=== PATIENT | male | born 1945 | race Caucasian/White ===

== ENCOUNTER 2019-02-08 10:18 | Inpatient (IN) | payer MEDICARE, OTHER ==
[~2019-02-08] VITALS: Ht 177.8 cm; Wt 94.4 kg
[~2019-02-08 10:18] MED LIST: AMIO200T4 PO; AMYL1CAP58 PO; CALC-17 PO; CARV12.52 PO; DEXL60CA3 PO; DIAZ5SOL2 PO; DOCU-270 PO; FURO80TA85 PO; HYDR-3976 PO; LISI2.5T2 PO; MEXI150C16 PO; OMEG-72 PO; POTA20TA83 PO; QUET50TA15 PO; RISE35TA8 PO; ROSU10TA2 PO; SPIR25TA6 PO; TRAM50TA2 PO; VITA1TAB56 PO; WARF7.5T23 PO
--- NOTE | 2019-02-08 10:58 | NUR ---
Cellulitis/swelling LE "was sent her by my MD to check legs. Swollen again and R one looks red". Patient a/ox4, breathing even and unlabored, no sob noted, denies pain at this time. Attached to the ekg monitor tech.
[2019-02-08] MEDS ORDERED: CEFAZOLIN 1 GM in IV D5W 50 ML IV ONE (11:30)
[2019-02-08 11:37] LABS: BASOPHILS # (AUTO) 0.1 /CMM (0.0-0.2); BASOPHILS % (AUTO) 1.3 % (0.0-2.0); EOSINOPHILS % (AUTO) 2.2 % (0.0-6.0); HEMATOCRIT 41 % (39-51); HEMOGLOBIN 13.4 g/dL (13.5-17.5); LYMPHOCYTES # (AUTO) 1.1 /CMM (0.8-4.8); LYMPHOCYTES % (AUTO) 15.5 % (20.0-44.0); MEAN CORPUSCULAR HGB CONC 33 g/dl (31.0-36.0); MEAN CORPUSCULAR VOLUME 91 fL (80-96); MONOCYTES # (AUTO) 0.7 /CMM (0.1-1.30); MONOCYTES % (AUTO) 9.5 % (2.0-12.0); NEUTROPHILS % (AUTO) 71.5 % (43.0-81.0); PLATELET COUNT (AUTO) 135 /CMM (150-450); RED BLOOD CELL COUNT(AUTO) 4.45 MIL/uL (4.5-6.0)
[2019-02-08 11:47] LABS: CALCIUM, SERUM 9.3 mg/dL (8.5-10.1); CARBON DIOXIDE 28 mmol/L (21-32); CHLORIDE 103 mmol/L (98-107); CREATININE 1.5 mg/dL (0.6-1.3); GLUCOSE 120 mg/dL (74-106); POTASSIUM 4.1 mmol/L (3.5-5.1); SODIUM SERUM 140 mmol/L (136-145); UREA NITROGEN, BLOOD 38 mg/dL (7-18)
[2019-02-08 11:59] LABS: ALANINE AMINOTRANSFERASE 25 U/L (12-78); ALKALINE PHOSPHATASE 47 U/L (46-116); ASPARTATE AMINOTRANSFERASE 18 U/L (15-37); B-TYPE NATRIURETIC PEPTIDE 2330 PG/ML (0-125); BILIRUBIN,DIRECT 0.3 mg/dL (0.0-0.2); BILIRUBIN,TOTAL 0.7 mg/dL (0.2-1.0); TOTAL PROTEIN, SERUM 6.8 g/dL (6.4-8.2)
--- NOTE | 2019-02-08 12:40 | NUR ---
called landen [phone] not there. cell phone [phone] called left
[2019-02-08] MEDS ORDERED: QUET50TA79 PO (12:53)
[2019-02-08] MEDS ORDERED: DOCU250C14 PO (12:53)
[2019-02-08] MEDS ORDERED: MAGN400T26 PO (12:54)
[2019-02-08] MEDS ORDERED: CALC-7 PO (12:54)
[2019-02-08] MEDS ORDERED: ZOLP10TA2 PO (12:54)
[2019-02-08] MEDS ORDERED: ERGO500014 PO (12:54)
[2019-02-08] MEDS ORDERED: FOLI0.8T PO (12:54)
[2019-02-08] MEDS ORDERED: LORA-259 PO (12:54)
[2019-02-08] MEDS ORDERED: FUROSEMIDE 40 MG/4 ML VIAL ONE (12:59)
[2019-02-08] MEDS ORDERED: FUROSEMIDE 40 MG/4 ML VIAL IV ONE (13:00)
--- NOTE | 2019-02-08 13:25 | NUR ---
caroline schuster [phone]
--- NOTE | 2019-02-08 13:36 | NUR ---
report given to nancy hayes.
--- NOTE | 2019-02-08 13:59 | NUR ---
patient transferred to room 326-2, in stable condition. No distress noted.
--- NOTE | 2019-02-08 14:06 | NUR ---
MS RN NOTES RECEIVED PATIENT IN STABLE CONDITION FROM ER.
[2019-02-08] MEDS ORDERED: DEXTROSE 50%-WATER 50 ML DISP.SYRIN IV PRN (15:00)
[2019-02-08 16:00] VITALS: BP 122/67
[2019-02-08] MEDS ORDERED: BUMETANIDE INJ 4 MG in IV NS 0.9% 24 ML IV ONE (16:00)
[2019-02-08 16:19] LABS: MAGNESIUM 2.2 mg/dL (1.8-2.4)
[2019-02-08 16:42] LABS: THYROID STIMULATING HORMONE 1.569 uIU/mL (0.358-3.74)
[2019-02-08] MEDS: IPRATROPIUM NEB FS 0.5 MG/2.5 ML AMPUL.NEB NEB SCH ×2 (17:09→23:40)
[2019-02-08] MEDS: ALBUTEROL FS 2.5 MG/0.5 ML VIAL.NEB NEB SCH ×2 (17:09→23:40)
--- NOTE | 2019-02-08 17:10 | NUR ---
RT BREATHING TX GIVEN LATE. RT UNAWARE OF SCHEDULED TX'S. NO SOB NOTED AT THIS TIME. Addendum: 02/08/19 at 1711 by ROCIO ALVA RT Amended: Links added.
[2019-02-08] MEDS: BLOOD SUGAR DIAGNOSTIC 1 EACH STRIP IN SCH ×2 (17:20→22:03)
[2019-02-08] MEDS: LISINOPRIL (5MG) 5 MG TABLET PO SCH (18:36)
--- NOTE | 2019-02-08 19:10 | NUR ---
MS RN NOTES PATIENT IS AWAKE, ALERT AND ORIENTED X 4. PATIENT DENIES PAIN, NO SIGNS OF ACUTE DISTRESS. WITH EVEN AND UNLABORED RESPIRATIONS. IV L AC 18G IS CLEAN, DRY AND INTACT. SHOWS NO SIGNS OF REDNESS, NO INFILTRATION. PATIENTS NEEDS WERE ATTENDED TO. SAFETY PRECAUTIONS IN PLACE. BED KEPT IN LOWEST POSITION, LOCKED, AND CALL LIGHT KEPT WITHIN REACH. WILL ENDORSE TO CYBER ANALYST NURSE.
--- NOTE | 2019-02-08 19:37 | NUR ---
TELE/RN OPENING NOTES RECEIVED PATIENT IN BED, AWAKE, ALERT X3, ABLE TO VERBALIZE NEEDS, OBSERVE SITTING IN BED OF CHAIR WITH [employer] ARCHITECT, USING URINAL, ABLE TO EMPTY URINE, RESPIRATIONS EVEN AND UNLABORED, SKIN WARM TO TOUCH, BED LOCKED, CALL LIGHTS WITHIN REACH. MONITOIRNG FOR FLUID RESTRICTIONS, ON TELE VPACING, MONITOIRING FOR HYPO/HYPERGLYCEMIA, WILL ,ONITOR. RECEIVED ENDORSEMENT FROM AM RN FOR BRUNO,
[2019-02-08 19:56] VITALS: BP 118/63
[2019-02-08 20:00] VITALS: BP 118/63
[2019-02-08] MEDS: ZOLPIDEM TARTRATE 10 MG TABLET PO SCH (22:01)
[2019-02-08] MEDS: QUETIAPINE FUMARATE 25 MG TABLET PO SCH (22:02)
[2019-02-09] VITALS (7 sets, daily range): BP systolic 107–133; BP diastolic 56–76
[2019-02-09] MEDS: BLOOD SUGAR DIAGNOSTIC 1 EACH STRIP IN SCH ×4 (06:19→22:30)
--- NOTE | 2019-02-09 06:45 | NUR ---
TELE/RN NOTES PATIENT ABLE TO SLEEP DURING THE NIGHT, ALERT, ORIENTED X3,ABLE TO VERBALIZE NEEDS, BLOOD SUGAR WITHIN NORMAL RANGE, DENIES PAIN, PATIENT TEST DONE PER ORDER BY DR WILKERSON,. FLUID RESTRICTION, BED LOCKED, CALL LIGHTS WITHIN REACH. WILL MONITOR.
--- NOTE | 2019-02-09 07:47 | NUR ---
TELE/RN Opening note Patient received resting in bed, A/O x4, showing no signs of acute distress or SOB on RA. Patient has ICD, tele monitor showing v-pacing at 62. IV line on the LAC #20 s/l is clean and patent. Patient on fluid restrictions 1200ml/day and on daily weights. Bed is in lowest position, side rails x2 in upright position, call light is within reach and patient is aware of how to call for assistance when needed. Will continue with plan of care.
[2019-02-09 08:49] LABS: ALANINE AMINOTRANSFERASE 22 U/L (12-78); ALBUMIN 3.4 g/dL (3.4-5.0); ALKALINE PHOSPHATASE 40 U/L (46-116); ASPARTATE AMINOTRANSFERASE 16 U/L (15-37); BILIRUBIN,TOTAL 0.8 mg/dL (0.2-1.0); CALCIUM, SERUM 8.2 mg/dL (8.5-10.1); CARBON DIOXIDE 31 mmol/L (21-32); CHLORIDE 105 mmol/L (98-107); CREATININE 1.4 mg/dL (0.6-1.3); GLUCOSE 113 mg/dL (74-106); POTASSIUM 3.9 mmol/L (3.5-5.1); SODIUM SERUM 139 mmol/L (136-145); TOTAL PROTEIN, SERUM 5.9 g/dL (6.4-8.2); UREA NITROGEN, BLOOD 35 mg/dL (7-18)
[2019-02-09] MEDS ORDERED: BUMETANIDE INJ 2 MG in IV NS 0.9% 32 ML IV PRN (09:00)
[2019-02-09] MEDS ORDERED: OMEGA ACID ETHYL ESTERS PO SCH (09:00)
[2019-02-09] MEDS ORDERED: SPIRONOLACTONE 25 MG TABLET PO SCH (09:00)
[2019-02-09] MEDS: IPRATROPIUM NEB FS 0.5 MG/2.5 ML AMPUL.NEB NEB SCH ×3 (09:04→23:30)
[2019-02-09] MEDS: ALBUTEROL FS 2.5 MG/0.5 ML VIAL.NEB NEB SCH ×3 (09:05→23:30)
[2019-02-09] MEDS: DOCUSATE SODIUM 250 MG CAPSULE PO SCH ×2 (09:18→17:57)
[2019-02-09] MEDS: SPIRONOLACTONE 25 MG TABLET PO SCH ×2 (09:19→17:50)
[2019-02-09] MEDS: CARVEDILOL 12.5 MG TABLET PO SCH ×2 (09:19→17:50)
[2019-02-09] MEDS: FOLIC ACID 1 MG TABLET PO SCH (09:20)
[2019-02-09] MEDS: LISINOPRIL (5MG) 5 MG TABLET PO SCH (09:20)
[2019-02-09] MEDS: MAGNESIUM OXIDE 400 MG TABLET PO SCH (09:20)
[2019-02-09] MEDS: LORAZEPAM 1 MG TABLET PO SCH ×2 (09:20→17:50)
[2019-02-09] MEDS: ATORVASTATIN 10 MG TABLET PO SCH (09:29)
[2019-02-09] MEDS: AMIODARONE HCL 200 MG TABLET PO SCH (09:29)
--- NOTE | 2019-02-09 10:04 | NUR ---
TELE/RN consent sent for disclosure of health info Per Dr. Posey, request for authorization for use and disclosure of health information was signed by the patient, and faxed to [facility]. Fax completed.
[2019-02-09] MEDS: METOLAZONE 2.5 MG TABLET PO SCH (10:52)
[2019-02-09] MEDS: BUMETANIDE INJ 2 MG in IV NS 0.9% 32 ML IV SCH ×2 (10:52→22:33)
--- NOTE | 2019-02-09 11:44 | NUR ---
received repot from [facility]. notified
[2019-02-09] MEDS: WARFARIN SODIUM 2 MG TABLET PO SCH (17:54)
[2019-02-09] MEDS ORDERED: MEXI150C16 PO (18:29)
--- NOTE | 2019-02-09 18:52 | NUR ---
MS/RN Closing note Patient is resting in bed, A/O x4, showing no signs of acute distress or SOB, saturating >95% on RA. Tele monitor v-pacing at 60, ICD noted on upper right chest. Strict I&O and daily weights enforced. All patient needs met, all due meds given. Bed is in lowest position, side rails x2 in upright position, call light is within reach and patient is aware of how to call for assistance when needed. Will endorse to police shift commander.
--- NOTE | 2019-02-09 19:50 | NUR ---
RN OPENING NOTES RECEIVED REPORT FROM [facility] ARUN ARCHER. FOUND Pt AWAKE, SITTING ON EDGE OF BED, WITH BEDSIDE TABLE AT SIDE. FRIEND VISITING AT BEDSIDE. NO S/S OF ACUTE DISTRESS OR SOB NOTED. Pt DENIED HAVING ANY PAIN OR DISCOMFORT AT THIS TIME. Pt IS A/OX4, VERBAL & ABLE TO MAKE NEEDS KNOWN. ON TELE WITH READING OF V-PACING 60s; HAS ICD ON RCW. IV ACCESS ON LAC #20G, SL. SAFETY MEASURES IN PLACE. BED LOW, LOCKED, HOB ELEVATED, SIDE RAILS UP, CALL LIGHT AND BEDSIDE TABLE WITHIN REACH. BED ALARM ON. WILL CONTINUE TO MONITOR Pt's CONDITION AND SAFETY THROUGHOUT THE NIGHT.
[2019-02-09] MEDS: QUETIAPINE FUMARATE 25 MG TABLET PO SCH (22:33)
[2019-02-09] MEDS: ZOLPIDEM TARTRATE 10 MG TABLET PO SCH (22:33)
[2019-02-10] VITALS: BP 104/75
[2019-02-10 04:00] VITALS: BP 103/56
[2019-02-10] MEDS: BLOOD SUGAR DIAGNOSTIC 1 EACH STRIP IN SCH ×4 (07:04→21:54)
--- NOTE | 2019-02-10 07:04 | NUR ---
RN NOTES AC ACCUCHECK BG 116. NO INSULIN COVERAGE NEEDED AT THIS TIME.
--- NOTE | 2019-02-10 07:07 | NUR ---
RN CLOSING NOTES NO SIGNIFICANT CHANGES IN Pt's CONDITION. Pt REMAINS STABLE PER BASELINE. NO S/S OF ACUTE DISTRESS OR SOB NOTED DURING THE NIGHT. ALL NEEDS MET AND ATTENDED TO. SAFETY MEASURES IN PLACE. BED LOW, LOCKED, HOB ELEVATED, SIDE RAILS UP, CALL LIGHT AND BEDSIDE TABLE WITHIN REACH. WILL ENDORSE TO DAYSHIFT RN FOR Pt's BRUNO.
[2019-02-10] MEDS: ALBUTEROL FS 2.5 MG/0.5 ML VIAL.NEB NEB SCH ×3 (07:35→23:20)
[2019-02-10] MEDS: IPRATROPIUM NEB FS 0.5 MG/2.5 ML AMPUL.NEB NEB SCH ×3 (07:35→23:20)
[2019-02-10 08:00] VITALS: BP 112/57
--- NOTE | 2019-02-10 08:00 | NUR ---
FIELD STAFF AM NOTES RECEIVED Pt AWAKE, SITTING ON EDGE OF BED. DENIES DISCOMFORT, ACUTE DISTRESS OR SOB NOTED.Pt IS A/OX4, VERBAL & ABLE TO MAKE NEEDS KNOWN. ON TELE WITH READING OF V-PACING 60s; HAS ICD ON RCW. IV ACCESS ON LAC #20G, SL. SAFETY MEASURES IN PLACE. BED LOW, LOCKED, HOB ELEVATED, SIDE RAILS UP, CALL LIGHT AND BEDSIDE TABLE WITHIN REACH. BED ALARM ON. WILL CONTINUE TO MONITOR Pt's CONDITION AND SAFETY.
[2019-02-10] MEDS ORDERED: ACETAMINOPHEN 325 MG TABLET PO PRN (08:30)
[2019-02-10] MEDS ORDERED: MEXILETINE HCL 150 MG CAPSULE PO SCH ×2 (09:00→13:38)
[2019-02-10] MEDS: LORAZEPAM 1 MG TABLET PO SCH ×2 (09:01→17:39)
[2019-02-10] MEDS: DOCUSATE SODIUM 250 MG CAPSULE PO SCH ×2 (09:02→17:39)
[2019-02-10] MEDS: FOLIC ACID 1 MG TABLET PO SCH (09:02)
[2019-02-10] MEDS: METOLAZONE 2.5 MG TABLET PO SCH (09:02)
[2019-02-10] MEDS: SPIRONOLACTONE 25 MG TABLET PO SCH ×2 (09:04→17:39)
[2019-02-10] MEDS: CARVEDILOL 12.5 MG TABLET PO SCH ×2 (09:04→17:00)
[2019-02-10] MEDS: AMIODARONE HCL 200 MG TABLET PO SCH (09:04)
[2019-02-10] MEDS: ATORVASTATIN 10 MG TABLET PO SCH (09:05)
[2019-02-10] MEDS: LISINOPRIL (5MG) 5 MG TABLET PO SCH (09:06)
[2019-02-10] MEDS: MAGNESIUM OXIDE 400 MG TABLET PO SCH (09:13)
[2019-02-10 09:37] LABS: CALCIUM, SERUM 8.9 mg/dL (8.5-10.1); CARBON DIOXIDE 30 mmol/L (21-32); CHLORIDE 97 mmol/L (98-107); CREATININE 1.5 mg/dL (0.6-1.3); GLUCOSE 176 mg/dL (74-106); SODIUM SERUM 134 mmol/L (136-145); UREA NITROGEN, BLOOD 37 mg/dL (7-18)
[2019-02-10 09:42] LABS: ALANINE AMINOTRANSFERASE 19 U/L (12-78); ALKALINE PHOSPHATASE 48 U/L (46-116); ASPARTATE AMINOTRANSFERASE 18 U/L (15-37); TOTAL PROTEIN, SERUM 6.8 g/dL (6.4-8.2)
[2019-02-10] MEDS: BUMETANIDE INJ 2 MG in IV NS 0.9% 32 ML IV SCH (10:21)
[2019-02-10 12:00] VITALS: BP 100/52
--- NOTE | 2019-02-10 12:23 | NUR ---
BS 144-PT REFUSED INSULIN PER SLIDING SCALE INSPITE OF EXPLAINING ITS RISKS AND BENEFITS
[2019-02-10 16:00] VITALS: BP 110/70
[2019-02-10] MEDS: WARFARIN SODIUM 2 MG TABLET PO SCH (17:43)
--- NOTE | 2019-02-10 18:00 | NUR ---
PT RESTING IN BED DENYING ANY PAIN OR DISTRESS.CALL LIGHT PLACED WITHIN REACH.
--- NOTE | 2019-02-10 19:40 | NUR ---
MS/DIGITAL FORENSIC ANALYST OPENING NOTES: RECEIVED PATIENT AWAKE IN BED. STABLE AND VERBALLY RESPONSIVE. ABLE TO MAKE NEEDS KNOWN. A/O X4. ON ROOM AIR, DENIES DISCOMFORT, NO S/S OF ACUTE DISTRESS. NO SOB NOTED. ON TELE WITH READING OF V-PACING 70s; IV ACCESS ON LFA #22G, SL. SAFETY MEASURES IN PLACE. BED LOW, LOCKED, HOB ELEVATED, SIDE RAILS UP, CALL LIGHT AND BEDSIDE TABLE WITHIN REACH. BED ALARM ON. WILL CONTINUE TO MONITOR ACCORDINGLY
[2019-02-10 20:00] VITALS: BP 103/58
[2019-02-10] MEDS: MEXILETINE HCL 150MG CAPSULE PO SCH (20:24)
[2019-02-10] MEDS: INSULIN REGULAR, HUMAN 100 UNIT/ML 3 ML VIAL SQ PRN (21:56)
[2019-02-10] MEDS: QUETIAPINE FUMARATE 25 MG TABLET PO SCH (21:57)
--- NOTE | 2019-02-10 22:00 | NUR ---
PLANT SENIOR MANAGER NOTES: PATIENT'S BLOOD SUGAR CHECK DONE. BS LEVEL OF 146. PATIENT REFUSED TO BE GIVEN INSULIN 2 UNITS. PATIENT IS STABLE AND VITAL SIGNS WNL. WILL CONTINUE TO MONITOR PATIENT FOR ANY CHANGES.
[2019-02-10] MEDS: ZOLPIDEM TARTRATE 10 MG TABLET PO SCH (22:46)
[2019-02-11] VITALS: BP 106/54
[2019-02-11 04:00] VITALS: BP 113/65
[2019-02-11 06:37] LABS: BASOPHILS # (AUTO) 0.1 /CMM (0.0-0.2); BASOPHILS % (AUTO) 1.2 % (0.0-2.0); EOSINOPHILS % (AUTO) 3.3 % (0.0-6.0); HEMATOCRIT 37 % (39-51); HEMOGLOBIN 12.7 g/dL (13.5-17.5); LYMPHOCYTES # (AUTO) 1.5 /CMM (0.8-4.8); MEAN CORPUSCULAR HGB CONC 34 g/dl (31.0-36.0); MEAN CORPUSCULAR VOLUME 89 fL (80-96); MONOCYTES # (AUTO) 0.8 /CMM (0.1-1.30); MONOCYTES % (AUTO) 12.1 % (2.0-12.0); NEUTROPHILS # (AUTO) 3.8 /CMM (1.8-8.9); NEUTROPHILS % (AUTO) 60.4 % (43.0-81.0); PLATELET COUNT (AUTO) 137 /CMM (150-450); RED BLOOD CELL COUNT(AUTO) 4.21 MIL/uL (4.5-6.0); WHITE BLOOD COUNT (AUTO) 6.3 K/uL (4.3-11.0)
--- NOTE | 2019-02-11 06:56 | NUR ---
DEFECTIVE CIGARETTE SLITTER CLOSING NOTES NO SIGNIFICANT CHANGES IN PT'S CONDITION. PATIENT IS ASLEEP IN BED, STABLE AND AROUSABLE ON VERBAL STIMULI. VITAL SIGNS STABLE AND WNL. NO S/S OF ACUTE DISTRESS OR SOB NOTED DURING THE NIGHT. ALL DUE MEDICATIONS GIVEN ORDERED. ON TELE WITH READING OF V-PACING 60s; DAILY WEIGHT OF 213LBS. IV ACCESS ON LFA #22G, SL. ALL NEEDS MET AND ATTENDED TO. SAFETY MEASURES IN PLACE. BED LOW, LOCKED, HOB ELEVATED, SIDE RAILS UP, CALL LIGHT AND BEDSIDE TABLE WITHIN REACH. WILL ENDORSE TO DAYSHIFT RN FOR Pt's BRUNO.
[2019-02-11] MEDS: BLOOD SUGAR DIAGNOSTIC 1 EACH STRIP IN SCH ×4 (07:19→22:30)
--- NOTE | 2019-02-11 07:27 | NUR ---
JOB PLACEMENT SPECIALIST OPENING NOTES PATIENT IN BED RESTING COMFORTABLY. PATIENT IN NO ACUTE DISTRESS. NO SOB NOTED. PATIENT BREATHING IS EVEN AND UNLABORED. NEEDS AND CONCERNS ADDRESSED. PATIENT SAFETY PRECAUTIONS IN PLACE. PATIENT ON CARDIAC MONITORING READING V PACING HR 60. PATIENT BED IS LOCKED AND IN LOWEST POSITION. CALL LIGHT WITHIN REACH. WILL CONTINUE TO MONITOR.
[2019-02-11 08:00] VITALS: BP 113/70
[2019-02-11] MEDS: METOLAZONE 2.5 MG TABLET PO SCH (08:32)
[2019-02-11] MEDS: ATORVASTATIN 10 MG TABLET PO SCH (08:32)
[2019-02-11] MEDS: DOCUSATE SODIUM 250 MG CAPSULE PO SCH ×2 (08:32→16:52)
[2019-02-11] MEDS: LISINOPRIL (5MG) 5 MG TABLET PO SCH (08:32)
[2019-02-11] MEDS: FOLIC ACID 1 MG TABLET PO SCH (08:35)
[2019-02-11] MEDS: AMIODARONE HCL 200 MG TABLET PO SCH (08:35)
[2019-02-11] MEDS: SPIRONOLACTONE 25 MG TABLET PO SCH ×2 (08:35→16:42)
[2019-02-11] MEDS: MAGNESIUM OXIDE 400 MG TABLET PO SCH (08:35)
[2019-02-11] MEDS: LORAZEPAM 1 MG TABLET PO SCH ×2 (08:35→16:52)
[2019-02-11] MEDS: CARVEDILOL 12.5 MG TABLET PO SCH ×2 (08:36→16:43)
[2019-02-11] MEDS: IPRATROPIUM NEB FS 0.5 MG/2.5 ML AMPUL.NEB NEB SCH ×3 (08:40→23:30)
[2019-02-11] MEDS: ALBUTEROL FS 2.5 MG/0.5 ML VIAL.NEB NEB SCH ×3 (08:40→23:30)
--- NOTE | 2019-02-11 09:08 | NUR ---
SAS ARCHITECT NOTE SPOKE WITH DR. PERDOMO REGARDING WARFARIN AND INR RANGE. ORDERS TO SPEAK TO DR. GRANT REGARDING INR LEVEL AND INR RANGE AND WARFARIN DOSAGE AND ADMINISTRATION. SPOKE WITH DR. GRANT AND INFORMED HIM OF INR AND DOSAGE. PER MD KEEP DOSAGE OF WARFARIN AT 6MG AND ADMINISTER AT ORDERED TIME.
[2019-02-11] MEDS: MEXILETINE HCL 150MG CAPSULE PO SCH ×2 (09:13→16:53)
--- NOTE | 2019-02-11 10:00 | NUR ---
COUNSELOR MANAGER NOTES PATIENT MAINTAINED ON FLUID RESTRICTIONS. PATIENT IS MADE AWARE.
[2019-02-11] MEDS: INSULIN REGULAR, HUMAN 100 UNIT/ML 3 ML VIAL SQ PRN (11:41)
--- NOTE | 2019-02-11 11:49 | NUR ---
WOODS OVERSEER NOTE PATIENT BLOOD SUGAR WAS 180, PATIENT WANTED TO RECHECK A MINUTE AFTER. BLOOD SUGAR WAS NOW 169. PATIENT REFUSED INSULIN COVERAGE. EDUCATED PATIENT ON MEDICATION. EXPLAINED RISKS VS BENEFITS 3X. PATIENT CONTINUED TO REFUSE. PATIENT IN NO ACUTE DISTRESS. WILL CONTINUE TO MONITOR.
[2019-02-11 16:00] VITALS: BP 114/65
[2019-02-11] MEDS ORDERED: BUMETANIDE INJ 2 MG in IV NS 0.9% 32 ML IV ONE (16:00)
--- NOTE | 2019-02-11 16:27 | NUR ---
INTERNATIONAL RELATIONS TEACHER NOTE SPOKE WITH DR. GRANT AGAIN REGARDING WARFARIN DOSAGE AND INR. ORDERS TO CHANGE DOSE FROM 6MG WARFARIN TO 7MG TODAY AND FOR TOMORROW 02/12. FOR 02/13 WARFARIN DOSE TO ADJUST BACK TO 6MG. DR. PERDOMO MADE AWARE.
[2019-02-11] MEDS: WARFARIN SODIUM 2 MG TABLET PO SCH (16:52)
--- NOTE | 2019-02-11 18:22 | NUR ---
SALES AND RETAIL MANAGEMENT RECRUITER CLOSING NOTE PATIENT IN BED RESTING COMFORTABLY. PATIENT IN NO ACUTE DISTRESS. NO SOB NOTED. PATIENT BREATHING IS EVEN AND UNLABORED. PATIENT ON CARDIAC MONITORING V PACING HR 69. PATIENT KEPT CLEAN, DRY, AND COMFORTABLE. PATIENT NEEDS AND CONCERNS ADDRESSED. PATIENT BED IS LOCKED AND IN LOWEST POSITION. CALL LIGHT WITHIN REACH. WILL ENDORSE CARE TO PM SHIFT FOR BRUNO.
--- NOTE | 2019-02-11 20:24 | NUR ---
BOTTLED BEVERAGE INSPECTOR OPENING NOTES PATIENT RECEIVED RESTING IN BED. NO ACUTE DISTRESS NOTES OR SOB. BREATHING EVEN AND UNLABORED. NO COMPLAINTS OF PAIN. LIGHTHOUSE KEEPER SHOWING V PACING HR AT 60. SAFETY PRECAUTIONS IN PLACE WITH BED IN LOWEST POSITION, LOCKED, AND CALL LIGHT WITHIN REACH. WILL CONTINUE TO MONITOR.
[2019-02-11 21:35] VITALS: BP 107/55
[2019-02-11] MEDS: ZOLPIDEM TARTRATE 10 MG TABLET PO SCH ×2 (22:26→23:12)
[2019-02-11] MEDS: QUETIAPINE FUMARATE 25 MG TABLET PO SCH (22:26)
--- NOTE | 2019-02-11 22:46 | NUR ---
SHOULDER PUNCHER NOTES PATIENTS BLOOD SUGAR WAS 158. PATIENT REFUSED INSULIN. EDUCATED PATIENT ABOUT MEDICATION AND EXPLAINED RISKS AND BENEFITS. PATIENT CONTINUED TO REFUSE. NO DISTRESS NOTED. WILL CONTINUE TO MONITOR.
[2019-02-12 04:00] VITALS: BP 115/66
--- NOTE | 2019-02-12 06:19 | NUR ---
MANAGER OF TIRES SALES CLOSING NOTES PATIENT CURRENTLY RESTING IN BED A/O x4. PATIENT IS ABLE TO MAKE NEEDS KNOWN. NO SIGNS OF ACUTE DISTRESS AND NO CURRENT COMPLAINTS OF PAIN. HEART MONITORS READING V PACING AT 60'S. PRESENT OF BLE EDEMA. IV LOCATE ON LEFT FA #22 AND L AC #20. PATIENT KEPT CLEAN AND DRY THROUGHOUT SHIFT AND ALL NEEDS WERE ATTENDED TO. SAFETY PRECAUTIONS ARE IN PLACE WITH BED IN LOWEST POSITION, LOCKED, AND CALL LIGHT WITHIN REACH. WILL ENDORSE TO ONCOMING SHIFT ABOUT BRUNO.
[2019-02-12 06:23] LABS: BASOPHILS # (AUTO) 0.1 /CMM (0.0-0.2); BASOPHILS % (AUTO) 1.1 % (0.0-2.0); HEMATOCRIT 38 % (39-51); LYMPHOCYTES # (AUTO) 1.4 /CMM (0.8-4.8); MEAN CORPUSCULAR HGB CONC 34 g/dl (31.0-36.0); MEAN CORPUSCULAR VOLUME 89 fL (80-96); MONOCYTES # (AUTO) 0.8 /CMM (0.1-1.30); MONOCYTES % (AUTO) 11.4 % (2.0-12.0); NEUTROPHILS # (AUTO) 4.8 /CMM (1.8-8.9); NEUTROPHILS % (AUTO) 65.5 % (43.0-81.0); PLATELET COUNT (AUTO) 149 /CMM (150-450); RED BLOOD CELL COUNT(AUTO) 4.28 MIL/uL (4.5-6.0); WHITE BLOOD COUNT (AUTO) 7.3 K/uL (4.3-11.0)
[2019-02-12 06:46] LABS: CALCIUM, SERUM 8.6 mg/dL (8.5-10.1); CARBON DIOXIDE 26 mmol/L (21-32); CHLORIDE 98 mmol/L (98-107); CREATININE 1.6 mg/dL (0.6-1.3); GLUCOSE 94 mg/dL (74-106); MAGNESIUM 2.2 mg/dL (1.8-2.4); PHOSPHORUS 3.8 mg/dL (2.5-4.9); POTASSIUM 3.9 mmol/L (3.5-5.1); SODIUM SERUM 135 mmol/L (136-145); UREA NITROGEN, BLOOD 48 mg/dL (7-18)
[2019-02-12] MEDS: BLOOD SUGAR DIAGNOSTIC 1 EACH STRIP IN SCH ×2 (07:06→12:17)
[2019-02-12] MEDS: IPRATROPIUM NEB FS 0.5 MG/2.5 ML AMPUL.NEB NEB SCH ×2 (07:35→15:02)
[2019-02-12] MEDS: ALBUTEROL FS 2.5 MG/0.5 ML VIAL.NEB NEB SCH ×2 (07:35→15:02)
[2019-02-12 08:00] VITALS: BP 111/64
[2019-02-12 08:10] VITALS: BP 111/64
[2019-02-12] MEDS: DOCUSATE SODIUM 250 MG CAPSULE PO SCH ×2 (09:04→16:30)
[2019-02-12] MEDS: FOLIC ACID 1 MG TABLET PO SCH (09:04)
[2019-02-12] MEDS: LISINOPRIL (5MG) 5 MG TABLET PO SCH (09:05)
[2019-02-12] MEDS: AMIODARONE HCL 200 MG TABLET PO SCH (09:06)
[2019-02-12] MEDS: METOLAZONE 2.5 MG TABLET PO SCH ×3 (09:06→16:30)
[2019-02-12] MEDS: SPIRONOLACTONE 25 MG TABLET PO SCH (09:06)
[2019-02-12] MEDS: LORAZEPAM 1 MG TABLET PO SCH ×2 (09:06→16:35)
[2019-02-12] MEDS: MAGNESIUM OXIDE 400 MG TABLET PO SCH (09:07)
[2019-02-12] MEDS: ATORVASTATIN 10 MG TABLET PO SCH (09:07)
[2019-02-12] MEDS: MEXILETINE HCL 150MG CAPSULE PO SCH ×2 (09:08→16:35)
[2019-02-12] MEDS: CARVEDILOL 12.5 MG TABLET PO SCH ×2 (09:09→16:33)
[2019-02-12] MEDS: WARFARIN SODIUM 2 MG TABLET PO SCH (16:32)
[2019-02-12 16:33] VITALS: BP 120/67
--- NOTE | 2019-02-12 16:59 | NUR ---
Patient cleared for d/c by MD. Patient awake alert and oriented x4 , breathing unlabored and even on room air. Patient denies SOB , denies pain. All needs attended; 1700 meds given . BS 112. Patient instructed to check weight every day, special diet (low sodium) printed and patient educated. Patient verbalized understanding. Patient will see Dr. Dejesus in 3 days. D/C instructions provided and signed. Valuable form checked and patient has all belongings with him , including upper and lower dentures, cell phone and home medication. IV line removed,no bleeding at the side, ID wrist band removed. PAtient refused discharge pictures. Patient safely transferred to [facility] via wheelchair accompanied by MEDICAL CLAIMS SPECIALIST and .
[2019-02-12] MEDS ORDERED: SPIRONOLACTONE 25 MG TABLET PO SCH (17:00)
[2019-02-13] MEDS ORDERED: WARFARIN SODIUM 2 MG TABLET PO SCH (17:00)
== END 2019-02-12 17:25 | disposition home or self-care (01) | DRG 291 ==
LOC: ER 10:19 → MED 13:30 → TELE 15:21 → MED 02-12 08:32
PROVIDERS: ADMIT Family Medicine; ATTEND Family Medicine
DX: I13.0 Hypertensive heart and chronic kidney disease with heart failure and stage 1 through stage 4 chronic kidney disease, or unspecified chronic kidney disease (principal); I50.23 Acute on chronic systolic (congestive) heart failure; L03.115 Cellulitis of right lower limb; N17.9 Acute kidney failure, unspecified; G93.1 Anoxic brain damage, not elsewhere classified; J98.11 Atelectasis; E78.5 Hyperlipidemia, unspecified; I11.0 Hypertensive heart disease with heart failure; I25.5 Ischemic cardiomyopathy; J44.9 Chronic obstructive pulmonary disease, unspecified; I48.91 Unspecified atrial fibrillation; N18.9 Chronic kidney disease, unspecified; Z88.7 Allergy status to serum and vaccine; E11.22 Type 2 diabetes mellitus with diabetic chronic kidney disease; E11.51 Type 2 diabetes mellitus with diabetic peripheral angiopathy without gangrene; D63.8 Anemia in other chronic diseases classified elsewhere; F32.9 Major depressive disorder, single episode, unspecified; I25.10 Atherosclerotic heart disease of native coronary artery without angina pectoris; M81.0 Age-related osteoporosis without current pathological fracture; Z79.01 Long term (current) use of anticoagulants; Z79.899 Other long term (current) drug therapy; D50.9 Iron deficiency anemia, unspecified; F43.10 Post-traumatic stress disorder, unspecified; G47.33 Obstructive sleep apnea (adult) (pediatric); M40.209 Unspecified kyphosis, site unspecified; K59.00 Constipation, unspecified; N40.0 Benign prostatic hyperplasia without lower urinary tract symptoms; B35.1 Tinea unguium; Z82.49 Family history of ischemic heart disease and other diseases of the circulatory system; Z86.718 Personal history of other venous thrombosis and embolism; Z86.74 Personal history of sudden cardiac arrest; Z87.891 Personal history of nicotine dependence; Z91.81 History of falling; Z95.1 Presence of aortocoronary bypass graft; Z95.810 Presence of automatic (implantable) cardiac defibrillator
CPT/HCPCS: 36415; 71045-TC; 72040-TC; 72074-TC; 72190-TC; 73030-TC; 80048-TC; 80053-TC; 80076-TC; 80162-TC; 82962-TC; 83735-TC; 83880; 84100-TC; 84443-TC; 84484-TC; 85025-TC; 85610-TC; 85730-TC; 87081-TC; 93307-TC; 93970-TC; 97116-TC; 97530-TC; 97535-TC; A4216; G0378; J0690; J1815; J1940; J3490; J7030; J7050; J7060

== ENCOUNTER 2019-10-11 18:37 | Inpatient (IN) | payer MEDICARE, OTHER ==
[~2019-10-11] VITALS: Ht 180.3 cm; Wt 90.7 kg
[~2019-10-11 18:37] MED LIST changes: -AMYL1CAP58 PO; -CALC-17 PO; -DEXL60CA3 PO; -DIAZ5SOL2 PO; -DOCU-270 PO; +DOCU250C14 PO; +FOLI0.8T PO; -FURO80TA85 PO; -HYDR-3976 PO; +LORA-259 PO; +MAGN400T26 PO; -MEXI150C16 PO; +MEXI150C17 PO; -POTA20TA83 PO; -QUET50TA15 PO; +QUET50TA79 PO; -RISE35TA8 PO; -TRAM50TA2 PO; -VITA1TAB56 PO; +ZOLP10TA2 PO
--- NOTE | 2019-10-11 18:40 | NUR ---
PT [id number] FRM HOME, FOR WEAKNESS, FREQUENT FALL FOR PAST 2 DAYS. PT IS AAOX4, NOT IN RESPIRATORY DISTRESS, HOOKED TO CLARIFYING PLANT OPERATOR, KEPT RESTED AND COMFORTABLE. WILL CONTINUE TO MONITOR.
--- NOTE | 2019-10-11 18:48 | NUR ---
SEEN AND EXAMINED BY .
--- NOTE | 2019-10-11 18:55 | NUR ---
PT IV LINE ESTABLISHED BLOOD DRAWN AND SENT TO LAB.
[2019-10-11] MEDS ORDERED: WARF6TAB23 PO (18:58)
[2019-10-11] MEDS ORDERED: METO5TAB7 PO (18:58)
[2019-10-11] MEDS ORDERED: TAMS-12 PO (18:58)
[2019-10-11] MEDS ORDERED: FINA5TAB11 PO (18:58)
[2019-10-11] MEDS ORDERED: CALC-15 PO (18:59)
[2019-10-11 19:01] LABS: BASOPHILS # (AUTO) 0.1 /CMM (0.0-0.2); BASOPHILS % (AUTO) 0.4 % (0.0-2.0); EOSINOPHILS % (AUTO) 0.1 % (0.0-6.0); HEMATOCRIT 42 % (39-51); HEMOGLOBIN 14.2 g/dL (13.5-17.5); LYMPHOCYTES % (AUTO) 6.5 % (20.0-44.0); MEAN CORPUSCULAR HGB CONC 34 g/dl (31.0-36.0); MEAN CORPUSCULAR VOLUME 91 fL (80-96); MONOCYTES # (AUTO) 1.2 /CMM (0.1-1.30); MONOCYTES % (AUTO) 7.9 % (2.0-12.0); NEUTROPHILS # (AUTO) 12.8 /CMM (1.8-8.9); NEUTROPHILS % (AUTO) 85.1 % (43.0-81.0); PLATELET COUNT (AUTO) 147 /CMM (150-450); RED BLOOD CELL COUNT(AUTO) 4.65 MIL/uL (4.5-6.0); WHITE BLOOD COUNT (AUTO) 15.1 K/uL (4.3-11.0)
--- NOTE | 2019-10-11 19:04 | NUR ---
REPORT GIVEN TO ARUN SANCHES FOR BRUNO.
[2019-10-11 19:11] LABS: CALCIUM, SERUM 9.7 mg/dL (8.5-10.1); CARBON DIOXIDE 26 mmol/L (21-32); CHLORIDE 89 mmol/L (98-107); CREATININE 2.7 mg/dL (0.6-1.3); GLUCOSE 197 mg/dL (74-106); POTASSIUM 4.1 mmol/L (3.5-5.1); SODIUM SERUM 127 mmol/L (136-145); UREA NITROGEN, BLOOD 75 mg/dL (7-18)
[2019-10-11 19:18] LABS: ALANINE AMINOTRANSFERASE 42 U/L (12-78); ALBUMIN 3.7 g/dL (3.4-5.0); ALKALINE PHOSPHATASE 49 U/L (46-116); ASPARTATE AMINOTRANSFERASE 48 U/L (15-37); BILIRUBIN,DIRECT 0.7 mg/dL (0.0-0.2); BILIRUBIN,TOTAL 1.9 mg/dL (0.2-1.0); TOTAL PROTEIN, SERUM 6.7 g/dL (6.4-8.2)
--- NOTE | 2019-10-11 19:20 | NUR ---
LACTIC ACID 5.2
--- NOTE | 2019-10-11 19:29 | NUR ---
INR 4.88
[2019-10-11] MEDS ORDERED: VANCOMYCIN 1 GM in IV D5W 250 ML IV ONE (19:30)
[2019-10-11] MEDS ORDERED: PIPERACILLIN /TAZOBACTAM 3.375 G in IV D5W 50 ML IV ONE (19:30)
--- NOTE | 2019-10-11 19:37 | NUR ---
BACK FROM CT
[2019-10-11 19:46] LABS: APPEARANCE,URINE Clear (CLEAR); BILIRUBIN,URINE Negative (NEGATIVE); BLOOD, URINE Negative Ery/uL (NEGATIVE); COLOR,URINE Orange (YELLOW); KETONES,URINE Negative (NEGATIVE); LEUKOCYTE ESTERASE ,URINE Negative (NEGATIVE); NITRITE, URINE Negative (NEGATIVE); PH,URINE 5.5 (5.0-8.0); PROTEIN,URINE 100 mg/dl (NEGATIVE); UGLUCOSE Negative (NEGATIVE); UROBILINOGEN,URINE 0.2 EU/dL (0.2)
[2019-10-11] MEDS ORDERED: FENTANYL PF 100MCG/2ML AMPUL ONE (19:48)
[2019-10-11] MEDS ORDERED: FENTANYL PF 100MCG/2ML AMPUL IV ONE (20:00)
[2019-10-11] MEDS ORDERED: IV NS 0.9% 1,000 ML BAG IV ONE (20:00)
[2019-10-11 20:01] LABS: BACTERIA,URINE None seen /HPF (None Seen); RBC,URINE 0-2 /HPF (0-2); SQUAMOUS EPITHELIAL CELL,UR Few /HPF (None Seen); WBC,URINE 0-2 /HPF (0-3)
--- NOTE | 2019-10-11 20:22 | NUR ---
LAB CALLED PT COVID (-).
--- NOTE | 2019-10-11 20:25 | NUR ---
PER DR. ADEN; PMD TO DO IVF BOLUS.
--- NOTE | 2019-10-11 21:26 | NUR ---
TELE 314-2
--- NOTE | 2019-10-11 21:53 | NUR ---
REPORT GIVEN TO DARRICK DIAS FOR BRUNO; PT WILL BE TRANSPORTED TO 3RD FLOOR
[2019-10-11 22:00] VITALS: BP 93/57
--- NOTE | 2019-10-11 22:10 | NUR ---
PT TRANSFER PEF ACLS PROTOCOL
--- NOTE | 2019-10-11 22:10 | NUR ---
RN NOTES RECEIVED PT. FROM ER WITH DX. OF GENERALIZED WEAKNESS, A/OX3, NEPALI SPEAKING BUT SPEAK LITTLE SERBIAN, NOT IN DISTRESS, V-PACING ON TELE MONITOR HR-62, SKIN ASSESSMENT DONE, ADMISSION INSTRUCTION WAS GIVEN, CALL LIGHT WITHIN REACH, [id number], CONTINUE TO MONITOR
[2019-10-11 22:54] VITALS: BP 93/57
--- NOTE | 2019-10-11 23:00 | NUR ---
RN NOTES JACOB ( PICC LINE) CAME TO INSERT A PICC LINE PER DR. GRANT'S ORDER. JACOB EXPLAINED THE BENEFITS OF HAVING PICC LINE, PT. AGREED AND SIGN THE CONSENT
--- NOTE | 2019-10-11 23:30 | NUR ---
RN NOTES DR. GRANT CALLED AND GAVE ADMISSION ORDER, ORDER NOTED AND CARRIED OUT
[2019-10-12] VITALS: BP 90/53
[2019-10-12] MEDS ORDERED: ONDANSETRON HCL/PF 4 MG/2 ML VIAL IV PRN
--- NOTE | 2019-10-12 | NUR ---
RN NOTES BLOOD SUGAR-139- NO COVERAGE GIVEN , PT. ATE 30 MINUTES AGO, PT. STATED "IT'S GOOD CHECK IN THE MORNING"
[2019-10-12] MEDS: IV NS 0.9% 1,000 ML IV PRN ×3 (00:40→23:17)
[2019-10-12] MEDS: BLOOD SUGAR DIAGNOSTIC 1 EACH STRIP IN SCH ×5 (00:41→23:25)
[2019-10-12] MEDS: ACETAMINOPHEN 325 MG TABLET PO PRN ×4 (00:55→16:31)
--- NOTE | 2019-10-12 00:55 | NUR ---
RN NOTES COMPLAINED OF BILATERAL LOWER EXTREMITIES PAIN AND BACK PAIN- TYLENOL 650MG PO GIVEN ORDERED
[2019-10-12] MEDS ORDERED: QUETIAPINE FUMARATE 25 MG TABLET PO PRN ×2 (01:00→08:30)
[2019-10-12] MEDS ORDERED: DEXTROSE 50%-WATER 50 ML DISP.SYRIN IV PRN (02:30)
[2019-10-12 04:00] VITALS: BP 91/57
[2019-10-12] MEDS ORDERED: BLOOD SUGAR DIAGNOSTIC 1 EACH STRIP IN SCH (06:00)
--- NOTE | 2019-10-12 07:00 | NUR ---
RN NOTES AWAKE, MORNING CARE RENDERED, NOT IN DISTRESS, CALL LIGHT WITHIN REACH, [id number]. PT. NEEDS ATTENDED
--- NOTE | 2019-10-12 07:20 | NUR ---
RN NOTES: RECEIVED PATIENT IN BED RESTING COMFORTABLY IN MODERATE HIGH BACK REST. ON RA, NO SIGNS OF DISTRESS NOTED AT THIS TIME. IV FLUIDS ON MARIA FERNANDA PICC LINE WITH NS RUNNING @100ML/HR. PATENT AND INTACT. PER INSURANCE AGENT NURSE BASELINE BP IS LOW. 90'S / 50'S. SAFETY PRECAUTION IN PLACED. BED IN LOWEST POSITION AND LOCKED. SIDE RAILS UP X2. CALL LIGHT WITHIN REACH. WILL CONTINUE TO MONITOR.
[2019-10-12 07:21] LABS: BASOPHILS % (AUTO) 0.3 % (0.0-2.0); EOSINOPHILS % (AUTO) 0.4 % (0.0-6.0); HEMATOCRIT 40 % (39-51); HEMOGLOBIN 13.2 g/dL (13.5-17.5); LYMPHOCYTES % (AUTO) 8.5 % (20.0-44.0); MEAN CORPUSCULAR HGB CONC 34 g/dl (31.0-36.0); MEAN CORPUSCULAR VOLUME 90 fL (80-96); MONOCYTES # (AUTO) 1.1 /CMM (0.1-1.30); MONOCYTES % (AUTO) 9.3 % (2.0-12.0); NEUTROPHILS % (AUTO) 81.5 % (43.0-81.0); PLATELET COUNT (AUTO) 114 /CMM (150-450); RED BLOOD CELL COUNT(AUTO) 4.41 MIL/uL (4.5-6.0); WHITE BLOOD COUNT (AUTO) 12.3 K/uL (4.3-11.0)
--- NOTE | 2019-10-12 07:39 | NUR ---
RN NOTES SEEN AND EXAMINED BY DR. CASTANEDA WITH ORDERS OF NORCO 5-325MG PO PRN FOR PAIN Q4H AND TO INCREASE RATE OF FLUIDS NS TO 125 MLS/HR. ORDERS MADE AND CARRIED OUT. WILL CONTINUE TO MONITOR.
[2019-10-12 08:00] VITALS: BP 76/48
[2019-10-12 08:02] LABS: ALANINE AMINOTRANSFERASE 45 U/L (12-78); ALBUMIN 3.2 g/dL (3.4-5.0); ALKALINE PHOSPHATASE 37 U/L (46-116); ASPARTATE AMINOTRANSFERASE 51 U/L (15-37); BILIRUBIN,TOTAL 1.4 mg/dL (0.2-1.0); CARBON DIOXIDE 29 mmol/L (21-32); CHLORIDE 91 mmol/L (98-107); CREATININE 2.3 mg/dL (0.6-1.3); GLUCOSE 115 mg/dL (74-106); MAGNESIUM 3.5 mg/dL (1.8-2.4); POTASSIUM 3.3 mmol/L (3.5-5.1); SODIUM SERUM 129 mmol/L (136-145); TOTAL PROTEIN, SERUM 5.8 g/dL (6.4-8.2); UREA NITROGEN, BLOOD 74 mg/dL (7-18)
[2019-10-12 08:09] LABS: THYROID STIMULATING HORMONE 1.264 uIU/mL (0.358-3.74)
[2019-10-12] MEDS ORDERED: LORAZEPAM 1 MG TABLET PO PRN (08:30)
[2019-10-12] MEDS ORDERED: ZOLPIDEM TARTRATE 10 MG TABLET PO PRN (08:30)
[2019-10-12 08:31] LABS: IRON, SERUM 68 ug/dl (50-175); TOTAL IRON BINDING CAPACITY 201 ug/dl (250-450)
[2019-10-12] MEDS: FOLIC ACID 1 MG TABLET PO SCH (08:40)
[2019-10-12] MEDS: DOCUSATE SODIUM 250 MG CAPSULE PO SCH ×2 (08:40→16:28)
[2019-10-12] MEDS: CARVEDILOL 12.5 MG TABLET PO SCH ×2 (08:44→21:00)
[2019-10-12] MEDS ORDERED: LISINOPRIL (5MG) 5 MG TABLET PO SCH (09:00)
[2019-10-12] MEDS ORDERED: NA PHOS,M-B/NA PHOS,DI-BA 1 EA ENEMA RC PRN (09:30)
--- NOTE | 2019-10-12 09:30 | NUR ---
RN NOTES SEEN AND EXAMINED BY DR. GRANT WITH ORDERS FOR LACTIC ACID X 2. ONE NOW AND AFTER 3 HOURS, ALSO TO GIVE 300ML OF NS BOLUS. ORDERS MADE AND CARRIED OUT. WILL CONTINUE TO MONITOR.
[2019-10-12] MEDS ORDERED: NS 0.9% IV ONE (10:00)
[2019-10-12] MEDS: PANTOPRAZOLE 40 MG VIAL IV SCH (10:43)
[2019-10-12] MEDS: MEXILETINE HCL 150 MG CAPSULE PO SCH ×2 (10:44→23:00)
[2019-10-12] MEDS: AMIODARONE HCL 200 MG TABLET PO SCH (10:44)
[2019-10-12] MEDS: POTASSIUM CL. PREMIX PERIPHER. 50 ML IV SCH ×2 (11:00→11:59)
[2019-10-12] MEDS: INSULIN REGULAR, HUMAN 100 UNIT/ML 3 ML VIAL SQ PRN ×3 (11:52→23:26)
[2019-10-12] MEDS ORDERED: POTASSIUM CHLORIDE 10 MEQ TABLET.SA PO ONE (13:00)
[2019-10-12] MEDS: PIPERACILLIN /TAZOBACTAM 2.25 G in IV D5W 50 ML IV SCH ×2 (13:06→18:42)
--- NOTE | 2019-10-12 14:20 | NUR ---
RN NOTES DELIVERED PATIENT HOME MED, [facility]. MEDICATION WAS GIVEN TO PHARMACY.
[2019-10-12 16:30] VITALS: BP 100/60
[2019-10-12] MEDS ORDERED: WARFARIN SODIUM 2 MG TABLET PO SCH (17:00)
[2019-10-12] MEDS ORDERED: MISCELLANEOUS MED 1 EA EA RC PRN (17:30)
[2019-10-12] MEDS ORDERED: LACTULOSE UDC 200 G in SODIUM CHLORIDE IRRIG SOLUTION 400 ML IR ONE (18:00)
--- NOTE | 2019-10-12 19:22 | NUR ---
RN NOTES: PATIENT IN BED RESTING COMFORTABLY IN MODERATE HIGH BACK REST. ON RA, NO SIGNS OF DISTRESS NOTED THROUGHOUT THE SHIFT. IV FLUIDS ON MARIA FERNANDA PICC LINE WITH NS RUNNING @125ML/HR. PATENT AND INTACT. SAFETY PRECAUTION IN PLACED. BED IN LOWEST POSITION AND LOCKED. SIDE RAILS UP X2. CALL LIGHT WITHIN REACH. WILL ENDORSE TO CLOUD ARCHITECT NURSE FOR BRUNO.
--- NOTE | 2019-10-12 19:23 | NUR ---
MS/RN OPENING NOTES: RECEIVED PATIENT IN BED RESTING A/OX3-4. FEELING CONSTIPATED. PT JUST RECEIVED LACTULOSE ENEMA. TOLERATED WELL. WAITING FOR BM. IN MODERATE HIGH BACK REST. CURRENTLY ON RA, NO SIGNS OF DISTRESS NOTED AT THIS TIME. IV FLUIDS ON MARIA FERNANDA PICC LINE WITH NS RUNNING @100ML/HR. PATENT AND INTACT. SAFETY PRECAUTION IN PLACED. BED IN LOWEST POSITION AND LOCKED. SIDE RAILS UP X2. CALL LIGHT WITHIN REACH. WILL CONTINUE MONITORING ACCORDINGLY.
[2019-10-12 20:00] VITALS: BP 112/60
[2019-10-12 21:41] LABS: APPEARANCE,URINE CLEAR (CLEAR); BILIRUBIN,URINE NEGATIVE (NEGATIVE); BLOOD, URINE SMALL Ery/uL (NEGATIVE); COLOR,URINE YELLOW (YELLOW); KETONES,URINE NEGATIVE (NEGATIVE); LEUKOCYTE ESTERASE ,URINE TRACE (NEGATIVE); NITRITE, URINE NEGATIVE (NEGATIVE); PH,URINE 5.5 (5.0-8.0); PROTEIN,URINE TRACE mg/dl (NEGATIVE); UGLUCOSE NEGATIVE (NEGATIVE); UROBILINOGEN,URINE 0.2 EU/dL (0.2)
[2019-10-12 21:44] LABS: URINE TOTAL PROTEIN 31.6 mg/dL (0-11.9)
[2019-10-12] MEDS: POLYETHYLENE GLYCOL 3350 17 GM POWD.PACK PO SCH (22:00)
[2019-10-12 22:02] LABS: BACTERIA,URINE 1+ /HPF (None Seen); SQUAMOUS EPITHELIAL CELL,UR 0-2 /HPF (None Seen)
[2019-10-12 22:04] LABS: EOSINOPHIL,URINE None Seen
[2019-10-12] MEDS: FINASTERIDE (5 MG) 5 MG TABLET PO SCH (23:03)
[2019-10-12] MEDS: TAMSULOSIN 0.4 MG CAP.SR.24H PO SCH (23:04)
[2019-10-13] MEDS: PIPERACILLIN /TAZOBACTAM 2.25 G in IV D5W 50 ML IV SCH ×3 (01:31→13:20)
[2019-10-13] MEDS: ACETAMINOPHEN 325 MG TABLET PO PRN (01:31)
[2019-10-13] MEDS: BLOOD SUGAR DIAGNOSTIC 1 EACH STRIP IN SCH ×4 (06:27→23:02)
[2019-10-13] MEDS: INSULIN REGULAR, HUMAN 100 UNIT/ML 3 ML VIAL SQ PRN ×2 (06:29→23:03)
--- NOTE | 2019-10-13 07:49 | NUR ---
MS/RN CLOSING NOTES: PATIENT IN BED RESTING COMFORTABLY IN MODERATE HIGH BACK REST. NO C/O PAIN AT THIS TIME. ON RA, NO SIGNS OF DISTRESS NOTED THROUGHOUT THE SHIFT. IV FLUIDS ON MARIA FERNANDA PICC LINE WITH NS RUNNING @125ML/HR. PATENT AND INTACT. SAFETY PRECAUTION IN PLACED. BED IN LOWEST POSITION AND LOCKED. SIDE RAILS UP X2. ALL DUE MEDS GIVEN ORDERED. ALL NEEDS MET AND RENDERED. CALL LIGHT WITHIN REACH. ENDORSED TO DAY SHIFT NURSE WILLIAM FOR BRUNO.
[2019-10-13 08:00] VITALS: BP 99/57
--- NOTE | 2019-10-13 08:00 | NUR ---
RN NOTES RECEIVED PATIENT IN THE BED A/O X4, ON O2NC -2L, PATIENT HAS NO ACUTE RESPIRATORY DISTRESS, V/S TAKEN BP- 99/57, HELD BP MEDICATION. PATIENT WAS COMPLAINING OF PAIN BLE 8/10 PER PAIN SCALE. INFUSING NS AT 125 ML/HR ON RIGHT PIC LINE. PATIENT STATE HE FEEL WEAK, KEEP BURPING, DISTENDED ABDOMEN, DEPRESS. ASSIST TURN AND REPOSTION Q 2 HR. BREAKFAST TOLERATED 50% SELF. CALL LIGHT WITHIN TO REACH. SAFETY PRECAUTION MAINTAINED ALL THE TIME.
[2019-10-13] MEDS: CARVEDILOL 12.5 MG TABLET PO SCH ×2 (08:34→21:00)
[2019-10-13] MEDS: PANTOPRAZOLE 40 MG VIAL IV SCH (08:34)
[2019-10-13] MEDS: FOLIC ACID 1 MG TABLET PO SCH (08:34)
[2019-10-13] MEDS: DOCUSATE SODIUM 250 MG CAPSULE PO SCH ×2 (08:34→16:55)
[2019-10-13] MEDS: AMIODARONE HCL 200 MG TABLET PO SCH (08:35)
[2019-10-13] MEDS: HYDROCODONE/APAP 5/325MG TABLET PO PRN ×2 (08:36→13:19)
--- NOTE | 2019-10-13 08:36 | NUR ---
RN NOTES ADMINISTERED NARCO 5/325 MG PO PRN FOR BLE PER PATIENT REQUEST, V/S TAKEN BP 99/57, P-77, R-18.
[2019-10-13] MEDS: MEXILETINE HCL 150 MG CAPSULE PO SCH ×2 (08:40→21:40)
[2019-10-13] MEDS: IV NS 0.9% 1,000 ML IV PRN ×2 (08:54→18:01)
[2019-10-13 08:55] LABS: ALANINE AMINOTRANSFERASE 43 U/L (12-78); ALKALINE PHOSPHATASE 34 U/L (46-116); ASPARTATE AMINOTRANSFERASE 31 U/L (15-37); BILIRUBIN,TOTAL 1.1 mg/dL (0.2-1.0); CALCIUM, SERUM 8.3 mg/dL (8.5-10.1); CARBON DIOXIDE 25 mmol/L (21-32); CHLORIDE 96 mmol/L (98-107); CREATININE 1.8 mg/dL (0.6-1.3); GLUCOSE 115 mg/dL (74-106); MAGNESIUM 3.1 mg/dL (1.8-2.4); PHOSPHORUS 4.6 mg/dL (2.5-4.9); POTASSIUM 2.9 mmol/L (3.5-5.1); SODIUM SERUM 133 mmol/L (136-145); TOTAL PROTEIN, SERUM 5.5 g/dL (6.4-8.2); UREA NITROGEN, BLOOD 70 mg/dL (7-18)
[2019-10-13 09:02] LABS: CREATINE KINASE, TOTAL 51 U/L (39-308); THYROID STIMULATING HORMONE 1.304 uIU/mL (0.358-3.74); URIC ACID 9.9 mg/dL (2.6-7.2)
[2019-10-13] MEDS: POTASSIUM CHLORIDE 20 MEQ TAB.PRT.SR PO SCH ×4 (10:21→13:20)
[2019-10-13 12:46] LABS: BASOPHILS # (AUTO) 0.1 /CMM (0.0-0.2); BASOPHILS % (AUTO) 0.7 % (0.0-2.0); EOSINOPHILS % (AUTO) 0.7 % (0.0-6.0); HEMATOCRIT 40 % (39-51); HEMOGLOBIN 13.3 g/dL (13.5-17.5); LYMPHOCYTES % (AUTO) 9.7 % (20.0-44.0); MEAN CORPUSCULAR HGB CONC 33 g/dl (31.0-36.0); MEAN CORPUSCULAR VOLUME 91 fL (80-96); MONOCYTES # (AUTO) 1.1 /CMM (0.1-1.30); MONOCYTES % (AUTO) 10.4 % (2.0-12.0); NEUTROPHILS # (AUTO) 7.9 /CMM (1.8-8.9); NEUTROPHILS % (AUTO) 78.5 % (43.0-81.0); PLATELET COUNT (AUTO) 122 /CMM (150-450); RED BLOOD CELL COUNT(AUTO) 4.36 MIL/uL (4.5-6.0); WHITE BLOOD COUNT (AUTO) 10.1 K/uL (4.3-11.0)
--- NOTE | 2019-10-13 13:19 | NUR ---
RN NOTES ADMINISTERED NARCO 5/325 MG PO PRN FOR BLE PAIN 10/28 PER PATIENT REQUEST, V/S TAKEN BP 105/51, P-77. CONTINUED MONITORING.
--- NOTE | 2019-10-13 13:22 | NUR ---
RN NOTES BS-167 MG/DL NO COVERAGE GIVEN, PATIENT REFUSED. TOLERATED LUNCH 50%.
[2019-10-13] MEDS ORDERED: POTASSIUM CHLORIDE 20 MEQ TAB.PRT.SR PO ONE (15:30)
[2019-10-13 16:00] VITALS: BP 105/60
--- NOTE | 2019-10-13 16:07 | NUR ---
SPOKE WITH ARUN WHITE, REGARDING THORACENTESIS, PATIENT ON BLOOD THINNERS AND INR IS HIGH 2.39, SHE WILL TALK TO ORDERING MD
--- NOTE | 2019-10-13 18:01 | NUR ---
RN NOTES BS-153 MG/DL PATIENT REFUSED COVERAGE, ADMINISTERED SCHEDULED MEDICATION. PATIENT MED COMPLIANT, V/S WNL.
--- NOTE | 2019-10-13 18:50 | NUR ---
RN NOTES PATIENT DEGREE CLERK FOR CT HIP AT THIS TIME, ALSO PATIENT SIGN CONSENT US GUIDED THORACENTESIS, ENDORSED ONCOMING NURSE FOLLOW PLAN OF CARE.
--- NOTE | 2019-10-13 19:30 | NUR ---
MS/RN OPENING NOTES: RECEIVED PATIENT IN BED RESTING A/OX4. NO C/O PAIN AT THIS TIME. PT CAME BACK FROM CT SCAN. CURRENTLY ON RA, NO SIGNS OF DISTRESS NOTED AT THIS TIME. IV SITE ON MARIA FERNANDA PICC LINE PATENT AND INTACT. SAFETY PRECAUTION IN PLACED. BED IN LOWEST POSITION AND LOCKED. CONDOM CATH ON, NOTED DRAINING CLEAR YELLOW OUTPUT. SIDE RAILS UP X2. CALL LIGHT WITHIN REACH. WILL CONTINUE MONITORING ACCORDINGLY.
[2019-10-13] MEDS: CEFTRIAXONE 1 G in IV D5W 50 ML IV SCH (19:31)
[2019-10-13 20:00] VITALS: BP 108/65
[2019-10-13] MEDS: POLYETHYLENE GLYCOL 3350 17 GM POWD.PACK PO SCH (22:00)
[2019-10-13] MEDS: TAMSULOSIN 0.4 MG CAP.SR.24H PO SCH (22:36)
[2019-10-13] MEDS: FINASTERIDE (5 MG) 5 MG TABLET PO SCH (22:37)
--- NOTE | 2019-10-13 23:30 | NUR ---
MS/RN NOTES: PT ACCU CHECK FOR 0000 IS 141. REFUSED REG. INSULIN COVERAGE. EXPLAINED RISKS AND BENEFITS X3. STILL REFUSED, WILL CONTINUE TO MONITOR.
[2019-10-14] MEDS: HYDROCODONE/APAP 5/325MG TABLET PO PRN (03:03)
--- NOTE | 2019-10-14 03:03 | NUR ---
MS/RN NOTES: PT COMPLAINED OF PAIN ON HIS BLE. REQUESTED PAIN MEDS. VSS. BP:110/70. HR:62. ADMINISTERED NORCO 5/325 PO. TOLERATED WELL. WILL CONTINUE TO MONITOR ACCORDINGLY.
[2019-10-14] MEDS: IV NS 0.9% 1,000 ML IV PRN (03:39)
[2019-10-14] MEDS: BLOOD SUGAR DIAGNOSTIC 1 EACH STRIP IN SCH ×4 (06:06→23:17)
[2019-10-14] MEDS: INSULIN REGULAR, HUMAN 100 UNIT/ML 3 ML VIAL SQ PRN ×2 (06:07→12:06)
--- NOTE | 2019-10-14 06:52 | NUR ---
MS/RN CLOSING NOTES: PATIENT IN BED RESTING COMFORTABLY IN MODERATE HIGH BACK REST. NO C/O PAIN AT THIS TIME. ON RA, NO SIGNS OF DISTRESS NOTED THROUGHOUT THE SHIFT. IV FLUIDS ON MARIA FERNANDA PICC LINE WITH NS RUNNING @125ML/HR. PATENT AND INTACT. SAFETY PRECAUTION IN PLACED. BED IN LOWEST POSITION AND LOCKED. SIDE RAILS UP X2. ALL DUE MEDS GIVEN ORDERED. ALL NEEDS MET AND RENDERED. CALL LIGHT WITHIN REACH. ENDORSED TO DAY SHIFT FOR BRUNO.
--- NOTE | 2019-10-14 07:30 | NUR ---
MS/RN NOTE THE PATIENT IS RECEIVED IN BED. THE PATIENT IS ALERT AND ORIENTED X4. IN ROOM AIR AND DENIES SOB. RESPIRATION REGULAR ND UNLABORED. DENIES PAIN. THE PATIENT IN NO APPARENT DISTRESS. RIGHT UPPER ARM PICC LINE PATENT AND NS INFUSING AT 125NML/HR. NO S/S INFILTRATION NOTED. BED LOW AND LOCKED. SIDE RAILS UP X3. CALL LIGHT WITHIN REACH. WILL CONTINUE TO MONITOR.
[2019-10-14 07:37] LABS: ALANINE AMINOTRANSFERASE 38 U/L (12-78); ALBUMIN 2.8 g/dL (3.4-5.0); ALKALINE PHOSPHATASE 37 U/L (46-116); ASPARTATE AMINOTRANSFERASE 27 U/L (15-37); BILIRUBIN,TOTAL 0.8 mg/dL (0.2-1.0); CALCIUM, SERUM 8.1 mg/dL (8.5-10.1); CARBON DIOXIDE 24 mmol/L (21-32); CHLORIDE 101 mmol/L (98-107); CREATININE 1.4 mg/dL (0.6-1.3); GLUCOSE 120 mg/dL (74-106); POTASSIUM 4.3 mmol/L (3.5-5.1); SODIUM SERUM 135 mmol/L (136-145); TOTAL PROTEIN, SERUM 5.5 g/dL (6.4-8.2); UREA NITROGEN, BLOOD 57 mg/dL (7-18)
[2019-10-14 07:45] LABS: BASOPHILS # (AUTO) 0.1 /CMM (0.0-0.2); BASOPHILS % (AUTO) 0.7 % (0.0-2.0); EOSINOPHILS % (AUTO) 0.8 % (0.0-6.0); HEMATOCRIT 39 % (39-51); HEMOGLOBIN 13.2 g/dL (13.5-17.5); LYMPHOCYTES # (AUTO) 0.9 /CMM (0.8-4.8); LYMPHOCYTES % (AUTO) 10.5 % (20.0-44.0); MEAN CORPUSCULAR HGB CONC 33 g/dl (31.0-36.0); MEAN CORPUSCULAR VOLUME 92 fL (80-96); MONOCYTES % (AUTO) 11.5 % (2.0-12.0); NEUTROPHILS # (AUTO) 6.8 /CMM (1.8-8.9); NEUTROPHILS % (AUTO) 76.5 % (43.0-81.0); PLATELET COUNT (AUTO) 139 /CMM (150-450); WHITE BLOOD COUNT (AUTO) 8.9 K/uL (4.3-11.0)
[2019-10-14 08:00] VITALS: BP 103/65
--- NOTE | 2019-10-14 08:00 | NUR ---
MS/RN NOTE THE PATIENT REFUSES TURNING AND REPOSITIONING DESPITE EXPLAINING RISKS AND BENEFITS MULTIPLE TIMES. THE PATIENT PREFERRED POSITION IS SUPINE.
[2019-10-14 08:06] LABS: PTH, INTACT 44 pg/mL (15-65)
[2019-10-14] MEDS: FUROSEMIDE 40 MG/4 ML VIAL IV SCH ×3 (09:49→16:53)
[2019-10-14] MEDS: PANTOPRAZOLE 40 MG VIAL IV SCH (09:49)
[2019-10-14] MEDS: DOCUSATE SODIUM 250 MG CAPSULE PO SCH ×2 (09:50→16:54)
[2019-10-14] MEDS: FOLIC ACID 1 MG TABLET PO SCH (09:50)
--- NOTE | 2019-10-14 10:00 | NUR ---
MS/RN NOTE THE PATIENT REFUSES TURNING AND REPOSITIONING DESPITE EXPLAINING RISKS AND BENEFITS MULTIPLE TIMES. THE PATIENT PREFERRED POSITION IS SUPINE.
[2019-10-14] MEDS: AMIODARONE HCL 200 MG TABLET PO SCH (11:12)
[2019-10-14] MEDS: CARVEDILOL 12.5 MG TABLET PO SCH ×2 (11:54→20:32)
--- NOTE | 2019-10-14 12:00 | NUR ---
MS/RN NOTE THE PATIENT REFUSES TURNING AND REPOSITIONING DESPITE EXPLAINING RISKS AND BENEFITS MULTIPLE TIMES. THE PATIENT PREFERRED POSITION IS SUPINE.
[2019-10-14] MEDS: MEXILETINE HCL 150 MG CAPSULE PO SCH ×2 (13:05→20:30)
[2019-10-14 13:16] VITALS: BP 117/64
--- NOTE | 2019-10-14 14:00 | NUR ---
MS/RN NOTE THE PATIENT REFUSES TURNING AND REPOSITIONING DESPITE EXPLAINING RISKS AND BENEFITS MULTIPLE TIMES. THE PATIENT PREFERRED POSITION IS SUPINE.
[2019-10-14 16:00] VITALS: BP 104/57
--- NOTE | 2019-10-14 16:00 | NUR ---
MS/RN NOTE THE PATIENT REFUSES TURNING AND REPOSITIONING DESPITE EXPLAINING RISKS AND BENEFITS MULTIPLE TIMES. THE PATIENT PREFERRED POSITION IS SUPINE.
[2019-10-14] MEDS: ALBUMIN 25% 25 GM in PREMIX 1 EA IV SCH ×2 (16:34→22:38)
[2019-10-14 17:00] VITALS: BP 101/70
--- NOTE | 2019-10-14 18:00 | NUR ---
MS/RN NOTE THE PATIENT REFUSES TURNING AND REPOSITIONING DESPITE EXPLAINING RISKS AND BENEFITS MULTIPLE TIMES. THE PATIENT PREFERRED POSITION IS SUPINE.
--- NOTE | 2019-10-14 18:56 | NUR ---
MS/RN NOTE THE PATIENT IS ALERT AND ORIENTED X4. DENIES SOB. PATIENT IS RECEIVING OXYGEN AT 2L/MIN VIA NASAL CANNULA AND SATURATION IS AT 96%. DENIES PAIN. THE PATIENT IN NO APPARENT DISTRESS. MARIA FERNANDA PICC LINE PATENT AND AND SALINE LOCKED. BED LOW AND LOCKED. SIDE RAILS UP X2. CALL LIGHT WITHIN REACH. WILL ENDORSE TO GENERAL ROAD SUPERVISOR.
--- NOTE | 2019-10-14 19:13 | NUR ---
MS/RN NOTE ROCEPHIN 1 G DUE AT 1800 IS NOT ADMINISTERED YET DUE TO ALBUMIN STILL INFUSING. RHEUMATOLOGIST IS ENDORSED TO ADMINISTER THE MEDICATION.
--- NOTE | 2019-10-14 19:35 | NUR ---
ms rn opening note received patient in bed. a/ox4, nigerian speaking able to make needs known. on oxygen 2l/min via nasal cannula. respirations are even and unlabored. no s/s sob noted. no c/o pain at this time. in no apparent distress. iv access in MARIA FERNANDA picc line currently running albumin @100ml/hr. condom catheter is present, draining to gravity. bed is low and locked, hob elevated in semi fowlers, side rials up x2 call light within reach. will continue to monitor.
--- NOTE | 2019-10-14 19:39 | NUR ---
MS/RN NOTE RECEIVED CALL FROM DR GRANT WITH AN ORDER OF ORTHO CONSULT (EDWARD SADLER). THE ORDER READ BACK, VERIFIED. NOTED AND CARRIED OUT.
[2019-10-14 20:00] VITALS: BP 107/62
[2019-10-14] MEDS: CEFTRIAXONE 1 G in IV D5W 50 ML IV SCH (20:25)
[2019-10-14] MEDS: POLYETHYLENE GLYCOL 3350 17 GM POWD.PACK PO SCH (22:00)
[2019-10-14] MEDS: FINASTERIDE (5 MG) 5 MG TABLET PO SCH (22:38)
[2019-10-14] MEDS: TAMSULOSIN 0.4 MG CAP.SR.24H PO SCH (22:38)
--- NOTE | 2019-10-14 23:17 | NUR ---
ms rn note patient refused insulin coverage for blood sugar 157. explained risk and benefits patient continues to refuse. will continue to monitor.
[2019-10-15] MEDS: BLOOD SUGAR DIAGNOSTIC 1 EACH STRIP IN SCH ×4 (06:06→23:35)
--- NOTE | 2019-10-15 07:09 | NUR ---
ms rn closing note patient in bed. a/ox4. remains on oxygen 2l/min via nasal cannula. respirations are even and unlabored. no sob noted. no distress. iv access maintained in MARIA FERNANDA picc line SL. condom catheter is maintained, draining to gravity. bed remains low and locked, hob elevated in semi fowlers, side rials up x2 call light within reach. will endorse to next shift.
[2019-10-15 07:21] LABS: BASOPHILS # (AUTO) 0.1 /CMM (0.0-0.2); BASOPHILS % (AUTO) 0.7 % (0.0-2.0); EOSINOPHILS % (AUTO) 1.6 % (0.0-6.0); HEMATOCRIT 38 % (39-51); HEMOGLOBIN 12.9 g/dL (13.5-17.5); LYMPHOCYTES # (AUTO) 0.9 /CMM (0.8-4.8); LYMPHOCYTES % (AUTO) 10.4 % (20.0-44.0); MEAN CORPUSCULAR HGB CONC 34 g/dl (31.0-36.0); MEAN CORPUSCULAR VOLUME 91 fL (80-96); MONOCYTES % (AUTO) 11.3 % (2.0-12.0); NEUTROPHILS # (AUTO) 6.8 /CMM (1.8-8.9); PLATELET COUNT (AUTO) 128 /CMM (150-450); RED BLOOD CELL COUNT(AUTO) 4.18 MIL/uL (4.5-6.0)
--- NOTE | 2019-10-15 07:30 | NUR ---
SOAP GRINDER NOTES PT IN BED, AWAKE, ALERT AND ORIENTED, NO COMPLAINT OF PAIN AT THIS TIME, RESPIRATIONS NORMAL, CALL LIGHT WITHIN REACH, PLAN OF CARE DISCUSSED WITH PT, VERBALIZED UNDERSTANDING, REPOSITIONED FOR COMFORT.
[2019-10-15 07:31] LABS: ALBUMIN 3.3 g/dL (3.4-5.0); BILIRUBIN,TOTAL 0.8 mg/dL (0.2-1.0); CALCIUM, SERUM 8.3 mg/dL (8.5-10.1); CREATININE 1.3 mg/dL (0.6-1.3); MAGNESIUM 2.7 mg/dL (1.8-2.4); PHOSPHORUS 2.5 mg/dL (2.5-4.9); POTASSIUM 3.1 mmol/L (3.5-5.1); TOTAL PROTEIN, SERUM 5.6 g/dL (6.4-8.2)
[2019-10-15 08:00] VITALS: BP 114/64
[2019-10-15] MEDS: FOLIC ACID 1 MG TABLET PO SCH (08:23)
[2019-10-15] MEDS: DOCUSATE SODIUM 250 MG CAPSULE PO SCH ×2 (08:23→16:33)
[2019-10-15] MEDS: MEXILETINE HCL 150 MG CAPSULE PO SCH ×2 (08:23→21:21)
[2019-10-15] MEDS: PANTOPRAZOLE 40 MG TABLET.DR PO SCH (08:23)
[2019-10-15] MEDS: HYDROCODONE/APAP 5/325MG TABLET PO PRN ×2 (08:32→21:25)
[2019-10-15] MEDS: ALBUMIN 25% 25 GM in PREMIX 1 EA IV SCH (08:32)
[2019-10-15] MEDS: CARVEDILOL 12.5 MG TABLET PO SCH ×2 (09:00→21:00)
[2019-10-15] MEDS: AMIODARONE HCL 200 MG TABLET PO SCH (09:00)
[2019-10-15] MEDS ORDERED: POTASSIUM CHLORIDE 20 MEQ TAB.PRT.SR PO SCH (10:00)
[2019-10-15] MEDS: POTASSIUM CL. PREMIX PERIPHER. 50 ML IV SCH ×2 (11:22→12:27)
--- NOTE | 2019-10-15 12:00 | NUR ---
SENIOR MANAGER MMCOE NOTES PT IN BED, PAIN MEDS GIVEN ORDERED, SEEN BY DR. GRANT, PER MD, HOLD THORACENTESIS TODAY, PT INFORMED, ORDERS GIVEN, KEPT PT COMFORTABLE, CALL LIGHT WITHIN REACH, PT SEEN BY OT/PT, TOLERATED EXERCISES WELL.
[2019-10-15] MEDS: LISINOPRIL (5MG) 5 MG TABLET PO SCH (15:00)
[2019-10-15 16:00] VITALS: BP 124/72
[2019-10-15] MEDS: CEFTRIAXONE 1 G in IV D5W 50 ML IV SCH (17:57)
--- NOTE | 2019-10-15 19:30 | NUR ---
RN MS NOTES PT IN BED, AWAKE, ALERT AND ORIENTED, DENIES PAIN AT THIS TIME, BREATHING PATTERN NORMAL, CALL LIGHT WITHIN REACH, ASSISTED WITH NEEDS, BLOOD SUGAR CHECKS DONE, REFUSED INSULIN ADMINISTRATION, CONDOM CATH IN PLACE, DRAINING WELL WITH CLEAR, YELLOW URINE, ALL NEEDS ATTENDED.
--- NOTE | 2019-10-15 19:50 | NUR ---
MS RN NOTE: PATIENT RESTING IN BED, NO ACUTE DISTRESS NOTED. BREATHING EVEN AND UNLABORED, NO SOB NOTED. PICC TO MARIA FERNANDA IN PLACE. CONDOM CATH IN PLACE, EMPTY AT THIS TIME. NO S/S OF HYPER/HYPOGLYCEMIA NOTED. BED LOCKED AND IN LOWEST POSITION, CALL LIGHT IN REACH. WILL CONTINUE TO MONITOR.
[2019-10-15 20:00] VITALS: BP 122/68
[2019-10-15] MEDS: POLYETHYLENE GLYCOL 3350 17 GM POWD.PACK PO SCH (21:22)
[2019-10-15] MEDS: FINASTERIDE (5 MG) 5 MG TABLET PO SCH (21:25)
[2019-10-15] MEDS: TAMSULOSIN 0.4 MG CAP.SR.24H PO SCH (21:25)
--- NOTE | 2019-10-15 21:30 | NUR ---
MS RN NOTE: PATIENT REFUSED COREG AND MIRALAX TONIGHT, STATES THAT HE DOES NOT FEEL CONSTIPATED AND THAT HIS BLOOD PRESSURE IS NORMAL. EXPLAINED RISK AND BENEFITS, BUT PATIENT CONTINUES TO REFUSE MEDICATION. PATIENT COMPLAINS OF BACK PAIN 09/27, NORCO 5/325MG 1.5 TAB ORAL GIVEN PER MD ORDER. WILL CONTINUE TO MONITOR.
--- NOTE | 2019-10-15 23:30 | NUR ---
MS RN NOTE: PATIENT BLOOD SUGAR LEVEL 150MG/DL, PATIENT TO RECEIVE 2 UNITS OF INSULIN PER SLIDING SCALE, BUT PATIENT REFUSES INSULIN. EXPLAINED RISK AND BENEFITS, BUT STILL REFUSES. NO S/S OF HYPER/HYPOGLYCEMIA NOTED. WILL CONTINUE TO MONITOR.
[2019-10-15] MEDS: INSULIN REGULAR, HUMAN 100 UNIT/ML 3 ML VIAL SQ PRN (23:35)
[2019-10-16] MEDS: ZOLPIDEM TARTRATE 10 MG TABLET PO PRN ×2 (01:20→23:05)
--- NOTE | 2019-10-16 01:30 | NUR ---
MS RN NOTE: PATIENT REQUESTING FOR MEDICATION FOR SLEEP, AMBIEN 10MG 1 TAB ORAL GIVEN PER MD ORDER. WILL CONTINUE TO MONITOR.
[2019-10-16] MEDS: BLOOD SUGAR DIAGNOSTIC 1 EACH STRIP IN SCH ×4 (06:00→23:05)
--- NOTE | 2019-10-16 06:05 | NUR ---
MS RN NOTE: PATIENT RESTING IN BED, NO ACUTE DISTRESS NOTED. BREATHING EVEN AND UNLABORED, NO SOB NOTED. PICC TO MARIA FERNANDA IN PLACE. CONDOM CATH IN PLACE, DRAINED 400ML OF CLEAR YELLOW URINE. PATIENT BLOOD SUGAR LEVEL 137MG/DL, PATIENT REFUSES INSULIN, EXPLAINED RISKS AND BENEFITS AND STILL REFUSES. NO S/S OF HYPER/HYPOGLYCEMIA NOTED. BED LOCKED AND IN LOWEST POSITION, CALL LIGHT IN REACH. WILL ENDORSE TO DAY NURSE TO CONTINUE WITH PLAN OF CARE.
[2019-10-16 06:35] LABS: *SPE A/G RATIO 1.5 (0.7-1.7); *SPE ALBUMIN 3.1 g/dL (2.9-4.4); *SPE ALPHA-1-GLOBULIN 0.3 g/dL (0.0-0.4); *SPE ALPHA-2-GLOBULIN 0.7 g/dL (0.4-1.0); *SPE BETA GLOBULIN 0.6 g/dL (0.7-1.3); *SPE GLOBULIN, TOTAL 2.1 g/dL (2.2-3.9); *SPE M-SPIKE Not Observed g/dL (Not Observed); *SPEGAMMA GLOBULIN 0.5 g/dL (0.4-1.8)
[2019-10-16 07:35] LABS: ALBUMIN 3.5 g/dL (3.4-5.0); BILIRUBIN,TOTAL 1.3 mg/dL (0.2-1.0); CALCIUM, SERUM 8.2 mg/dL (8.5-10.1); CREATININE 1.1 mg/dL (0.6-1.3); POTASSIUM 3.7 mmol/L (3.5-5.1); TOTAL PROTEIN, SERUM 6.1 g/dL (6.4-8.2)
[2019-10-16 08:00] VITALS: BP 121/79
--- NOTE | 2019-10-16 08:00 | NUR ---
RN NOTE RECEIVED PT IN BED ALERT AND ORIENTED x3, PT ON 2L OF OXYGEN VIA N/C SATURATING AT 94% AT THIS TIME, PT HAS A CONDOM CATH AND DRAINING WELL WITH TEA COLOR, PT ON MAX ASSIST AND TURNED Q2 HOURS , PT HAVING ULTRA SOUND GUIDED THORACENTESIS, PT AWARE OF PROCEDURE, PT HAS A MARIA FERNANDA PICC WITH TRIPLE LUMEN, INTACT AND FLUSHED WELL, CALL LIGHT WITHIN REACH AND FUNCTIONING, BED ON LOWEST LOCKED POSITION, WILL CONTINUE TO MONITOR
[2019-10-16] MEDS: PANTOPRAZOLE 40 MG TABLET.DR PO SCH (09:11)
[2019-10-16] MEDS: FOLIC ACID 1 MG TABLET PO SCH (09:12)
[2019-10-16] MEDS: AMIODARONE HCL 200 MG TABLET PO SCH (09:12)
[2019-10-16] MEDS: CARVEDILOL 12.5 MG TABLET PO SCH ×2 (09:12→21:00)
[2019-10-16] MEDS: DOCUSATE SODIUM 250 MG CAPSULE PO SCH ×2 (09:13→16:48)
[2019-10-16] MEDS: LISINOPRIL (5MG) 5 MG TABLET PO SCH (09:13)
[2019-10-16] MEDS: MEXILETINE HCL 150 MG CAPSULE PO SCH ×2 (09:16→21:32)
--- NOTE | 2019-10-16 11:59 | NUR ---
rn notes bs173 mg/dl not coverage given. because patient will had us guided thoracentesis.
[2019-10-16] MEDS: HYDROCODONE/APAP 5/325MG TABLET PO PRN ×2 (12:25→22:24)
--- NOTE | 2019-10-16 12:26 | NUR ---
rn notes administered narco 5/325 mg po prn 1 and 1/2 tabs for generalized pain 10/28 per patient request, v/s taken bp 114/63, HR 60, RR 18, O2 95%on 2L via n/c, temp 97.8 oral, will continue to monitor
[2019-10-16 16:00] VITALS: BP 100/54
[2019-10-16] MEDS: CEFTRIAXONE 1 G in IV D5W 50 ML IV SCH (18:16)
--- NOTE | 2019-10-16 18:20 | NUR ---
MARKETING AND OUTREACH COORDINATOR CLOSING NOTE PT IS IN BED AWAKE, ALERT AND ORIENTED X4, PT CONTINUED ON 2L OXYGEN VIA N/C SATURATING AT 94% WITH NO DISTRESS NOTED, PT GOT UP WITH PHYSICAL THERAPIST, PT IS GETTING ROCEPHIN RIGHT NOW, NO COMPLAINTS OF PAIN AT THIS MOMENT, PT IS STABLE WITH NO RESPIRATORY DISTRESS NOTED, PT IS SCHEDULED FOR ULTRASOUND GUIDED THORACENTESIS IN AM TOMORROW, PT CONSENT OBTAINED, CALL LIGHT WITHIN REACH AND FUNCTIONING, BED LOCKED AND IN LOWEST POSITION, WILL ENDORSE TO 7PM SHIFT RN NURSE TO CONTINUE PLAN OF CARE
--- NOTE | 2019-10-16 19:50 | NUR ---
MS RN NOTE: PATIENT RESTING IN BED, NO ACUTE DISTRESS NOTED. BREATHING EVEN AND UNLABORED, NO SOB NOTED. PICC TO MARIA FERNANDA IN PLACE. CONDOM CATH IN PLACE, EMPTY AT THIS TIME. NO S/S OF HYPER/HYPOGLYCEMIA NOTED. BED LOCKED AND IN LOWEST POSITION, CALL LIGHT IN REACH. WILL CONTINUE TO MONITOR. Addendum: 10/17/19 at 0047 by BUFFY MUNOZ RN CLARIFICATION, CONDOM CATHETER NO LONGER IN PLACE, PATIENT ABLE TO USE URINAL AT BEDSIDE.
[2019-10-16 20:00] VITALS: BP 105/49
[2019-10-16] MEDS: FINASTERIDE (5 MG) 5 MG TABLET PO SCH (21:32)
[2019-10-16] MEDS: POLYETHYLENE GLYCOL 3350 17 GM POWD.PACK PO SCH (21:32)
[2019-10-16] MEDS: TAMSULOSIN 0.4 MG CAP.SR.24H PO SCH (21:32)
--- NOTE | 2019-10-16 21:45 | NUR ---
MS RN NOTE: PATIENT BLOOD PRESSURE 105/49, HR 60, COREG HELD AT THIS TIME. PATIENT DENIES S/S OF HYPOTENSION. WILL CONTINUE TO MONITOR.
--- NOTE | 2019-10-16 22:30 | NUR ---
RN NOTE: PATIENT BLOOD SUGAR LEVEL 134MG/DL, PATIENT TO RECEIVE 2 UNITS OF INSULIN PER SLIDING SCALE, BUT PATIENT REFUSES INSULIN. EXPLAINED RISK AND BENEFITS, BUT STILL REFUSES. NO S/S OF HYPER/HYPOGLYCEMIA NOTED. WILL CONTINUE TO MONITOR. Addendum: 10/17/19 at 0019 by BUFFY MUNOZ RN PATIENT COMPLAINS OF BACK PAIN 09/27, NORCO 5/325MG 1.5 TAB ORAL GIVEN PER MD ORDER.
--- NOTE | 2019-10-16 23:10 | NUR ---
MS RN NOTE: PATIENT REQUESTING FOR MEDICATION FOR SLEEP, AMBIEN 10MG 1 TAB ORAL GIVEN PER MD ORDER. WILL CONTINUE TO MONITOR.
[2019-10-17] MEDS: BLOOD SUGAR DIAGNOSTIC 1 EACH STRIP IN SCH ×4 (06:03→23:40)
--- NOTE | 2019-10-17 06:25 | NUR ---
MS RN NOTE: PATIENT RESTING IN BED, NO ACUTE DISTRESS NOTED. BREATHING EVEN AND UNLABORED, NO SOB NOTED. PICC TO MARIA FERNANDA IN PLACE. PATIENT BLOOD SUGAR LEVEL 100MG/DL, NO INSULIN NEEDED PER SLIDING SCALE. NO S/S OF HYPER/HYPOGLYCEMIA NOTED. BED LOCKED AND IN LOWEST POSITION, CALL LIGHT IN REACH. WILL ENDORSE TO DAY NURSE TO CONTINUE WITH PLAN OF CARE.
[2019-10-17] MEDS: PANTOPRAZOLE 40 MG TABLET.DR PO SCH (07:30)
--- NOTE | 2019-10-17 07:40 | NUR ---
MS/RN OPENING NOTES: RECEIVED PATIENT IN BED RESTING HOB ELEVATED A/OX4. NO C/O PAIN AT THIS TIME. CURRENTLY ON RA ON o2 @ 2L PRN, NO SIGNS OF DISTRESS NOTED AT THIS TIME. IV SITE ON MARIA FERNANDA PICC LINE PATENT AND INTACT. SAFETY PRECAUTION IN PLACED. BED IN LOWEST POSITION AND LOCKED. PT ABLE TO USED URINAL. SIDE RAILS UP X2. CALL LIGHT WITHIN REACH. WILL CONTINUE MONITORING ACCORDINGLY.
[2019-10-17 08:00] VITALS: BP 102/54
[2019-10-17] MEDS: LISINOPRIL (5MG) 5 MG TABLET PO SCH (09:00)
[2019-10-17] MEDS: CARVEDILOL 12.5 MG TABLET PO SCH ×2 (09:00→21:04)
[2019-10-17] MEDS: DOCUSATE SODIUM 250 MG CAPSULE PO SCH ×2 (09:28→17:30)
[2019-10-17] MEDS: AMIODARONE HCL 200 MG TABLET PO SCH (09:29)
[2019-10-17] MEDS: FOLIC ACID 1 MG TABLET PO SCH (09:30)
[2019-10-17] MEDS: MEXILETINE HCL 150 MG CAPSULE PO SCH ×2 (09:35→21:03)
--- NOTE | 2019-10-17 10:45 | NUR ---
INPUT OUTPUT CLERK NOTE PT IS IN BED AWAKE, ALERT AND ORIENTED X3, PT CONTINUED ON 2L OXYGEN VIA N/C SATURATING AT 96% WITH NO DISTRESS NOTED, NO COMPLAINTS OF PAIN AT THIS MOMENT, PT IS STABLE WITH NO RESPIRATORY DISTRESS NOTED, PT HAD ULTRASOUND GUIDED THORACENTESIS WITH OUT PUT OF 700 ML, SPECIMEN SEND TO LAB ORDER, CALL LIGHT WITHIN REACH AND FUNCTIONING, BED LOCKED AND IN LOWEST POSITION, WILL CONTINUE PLAN OF CARE
[2019-10-17] MEDS: INSULIN REGULAR, HUMAN 100 UNIT/ML 3 ML VIAL SQ PRN ×2 (12:13→23:40)
[2019-10-17 15:18] LABS: ABG BASE EXCESS -3.4 mmol/L; ABG OXYGEN SATURATION 89.6 % (92.0-98.5); ABG PCO2 28.7 mmHg (35.0-45.0); ABG PH 7.447 (7.350-7.450); ABG PO2 52.8 mmHg (75.0-100.0); AaDO2 62.6 mmHg; COHb 1.1 % (0.5-1.5); O2Hb 88.6 % (94.0-97.0); SITE, ABG Right Radial; VENT MODE, BG RA
[2019-10-17 16:00] VITALS: BP 115/62
[2019-10-17] MEDS: CEFTRIAXONE 1 G in IV D5W 50 ML IV SCH (18:10)
--- NOTE | 2019-10-17 18:52 | NUR ---
MS/RN CLOSING NOTE PT IS IN BED AWAKE, ALERT AND ORIENTED X3, PT CONTINUED ON 2L OXYGEN VIA N/C SATURATING AT 96% WITH NO DISTRESS NOTED, NO COMPLAINTS OF PAIN AT THIS MOMENT, PT IS STABLE WITH NO RESPIRATORY DISTRESS NOTED, PT HAD ULTRASOUND GUIDED THORACENTESIS WITH OUT PUT OF 700 ML, SPECIMEN SEND TO LAB ORDER, HE ALSO HAD AN ABG AT ROOM AIR PO2 WAS LOW PT NEEDS TO KEEP O2 FRONT DESK ASSOCIATE LIGHT WITHIN REACH AND FUNCTIONING, BED LOCKED AND IN LOWEST POSITION, WILL CONTINUE PLAN OF CARE
--- NOTE | 2019-10-17 19:50 | NUR ---
MS RN OPENING NOTES RECEIVED PATIENT FROM MORNING SHIFT ALERT AND ORIENTED X 3. VERBALLY RESPONSIVE AND ABLE TO FOLLOW DIRECTIONS. BREATHING REGULAR AND UNLABORED ON OXYGEN AT 2L/MIN VIA NASAL CANNULA. RIGHT UPPER ARM TRIPLE LUMEN PICC LINE INTACT AND FLUSHING WELL WITH NO BLEEDING OR S/S OF INFILTRATION NOTED. S/P US GUIDED THORACENTESIS WITH NO ADVERSE REACTIONS OR COMPLICATION OBSERVED, DENIES SUICIDAL IDEATION AT THIS TIME. COMPLAINED OF LEFT LEG PAIN, ICE PACK APPLIED. BED LOW AND LOCKED ON SEMI FOWLERS POSITION. CALL LIGHT IN REACH. WILL CONTINUE TO MONITOR.
[2019-10-17 20:00] VITALS: BP 110/60
[2019-10-17] MEDS: FINASTERIDE (5 MG) 5 MG TABLET PO SCH (21:03)
[2019-10-17] MEDS: TAMSULOSIN 0.4 MG CAP.SR.24H PO SCH (21:03)
[2019-10-17] MEDS: POLYETHYLENE GLYCOL 3350 17 GM POWD.PACK PO SCH (21:04)
[2019-10-17] MEDS: HYDROCODONE/APAP 5/325MG TABLET PO PRN (21:58)
--- NOTE | 2019-10-17 22:00 | NUR ---
MS RN NOTES COMPLAINED OF 7/10 LEFT LEG PAIN, NORCO 5/325 GIVEN BY MOUTH. NON-PHARMACOLOGICAL INTERVENTIONS PROVIDED. VITAL SIGNS WNL. WILL CONTINUE TO MONITOR.
[2019-10-17] MEDS: ZOLPIDEM TARTRATE 10 MG TABLET PO PRN (23:27)
--- NOTE | 2019-10-17 23:30 | NUR ---
MS RN NOTES COMPLAINED OF INABILITY TO STAY ASLEEP, AMBIEN 10MG GIVEN BY MOUTH. NON-PHARMACOLOGICAL INTERVENTIONS PROVIDED. WILL CONTINUE TO MONITOR.
--- NOTE | 2019-10-18 | NUR ---
MS RN NOTES BS 127mg/dl, NO INSULIN COVERAGE NEEDED. SNACKS PROVIDED ON BEDSIDE. WILL CONTINUE TO MONITOR.
[2019-10-18] MEDS: BLOOD SUGAR DIAGNOSTIC 1 EACH STRIP IN SCH ×4 (05:54→21:52)
[2019-10-18] MEDS: INSULIN REGULAR, HUMAN 100 UNIT/ML 3 ML VIAL SQ PRN ×2 (05:55→21:53)
--- NOTE | 2019-10-18 06:40 | NUR ---
MS RN CLOSING NOTES PATIENT IN BED ALERT AND ORIENTED X 3. AFEBRILE WITH NO S/S OF DISTRESS OBSERVED. RIGHT UPPER ARM TRIPLE LUMEN PICC LINE INTACT AND FLUSHING WELL. NO COMPLAINTS OF PAIN/DISCOMFORT REPORTED AT THIS TIME. BED LOW AND LOCKED ON SEMI FOWLERS POSITION. CALL LIGHT IN REACH. WILL CONTINUE TO MONITOR.
[2019-10-18 08:00] VITALS: BP 103/62
--- NOTE | 2019-10-18 08:00 | NUR ---
rn notes patient stable , on o2-2l nc, no acute respiratory distress, v/s taken bp 102/62,p-60, held bp medications, also patient was complaining of pain generalized 6/10 per pain scale, unable to get out of bed, hard to move in the bed. Seen hospitalist Dr Linares patient will d/c rehab after seen ortho consult, and per ANG will d/c with oxygen. call light within to reach. safety precaution maintained all the time.
[2019-10-18] MEDS: LISINOPRIL (5MG) 5 MG TABLET PO SCH (09:00)
[2019-10-18] MEDS: CARVEDILOL 12.5 MG TABLET PO SCH ×2 (09:00→21:00)
[2019-10-18] MEDS: AMIODARONE HCL 200 MG TABLET PO SCH (09:00)
[2019-10-18] MEDS: FOLIC ACID 1 MG TABLET PO SCH (09:05)
[2019-10-18] MEDS: DOCUSATE SODIUM 250 MG CAPSULE PO SCH ×2 (09:05→16:11)
[2019-10-18] MEDS: PANTOPRAZOLE 40 MG TABLET.DR PO SCH (09:05)
[2019-10-18] MEDS: HYDROCODONE/APAP 5/325MG TABLET PO PRN ×2 (09:08→16:11)
--- NOTE | 2019-10-18 09:08 | NUR ---
RN NOTES ADMINISTERED NARCO 5/325 MG 1 1/2 TABS PER PATIENT REQUEST PAIN GENERALIZED, SEEN TIN ROOFER Dr HAMPTON , AND VERBAL ORDER REMOVE O2- NC TO ROOM AIR, AND FOLLOW UP.
[2019-10-18] MEDS: MEXILETINE HCL 150 MG CAPSULE PO SCH ×2 (09:19→21:53)
--- NOTE | 2019-10-18 10:15 | NUR ---
rn notes called [place] [facility] office for consultation. left massage with the front dest nuclear weapons custodian.
[2019-10-18 16:00] VITALS: BP 116/68
--- NOTE | 2019-10-18 16:11 | NUR ---
rn notes administered narco 5/325 mg po prn for generalized pain per patient request 8/10 per pain scale, v/s taken bp-119/78, p-60, r-20.
--- NOTE | 2019-10-18 16:32 | NUR ---
rn notes notified Dr. Linares about ortho unable to see patient today, patient will follow outpatient. Per hospitalist he will [facility].
--- NOTE | 2019-10-18 16:46 | NUR ---
RN NOTES GET CALL FROM [facility]THO [facility], AND GET TO ORDER PUT PATIENT NPO NOW , AND CONSENT FORM LEFT HIP ARTHROGRAM WITH CORTISOL INJECTION, ORDER TAKEN AND CARRIED OUT.
--- NOTE | 2019-10-18 18:25 | NUR ---
RN NOTES PATIENT IT SERVICE DELIVERY MANAGER FOR LEFT HIP ARTHROGRAM WITH CORTISOL INJECTION AT THIS TIME. PATIENT SIGN CONSENT FORM, NPO V/S WNL.
[2019-10-18] MEDS ORDERED: LIDOCAINE HCL/MPF 1% 30 ML VIAL IJ ONE (18:56)
[2019-10-18] MEDS ORDERED: BUPIVACAINE 0.5 % PF 150 MG/30 ML VIAL ONE (18:56)
[2019-10-18] MEDS ORDERED: IOHEXOL 240MG/ML 50 ML IV ONE (18:56)
[2019-10-18] MEDS ORDERED: BETA ACET/BET NA PHOS MDV 6 MG/ML VIAL ONE (18:57)
--- NOTE | 2019-10-18 19:40 | NUR ---
PATIENT RETURNED FROM OR FROM PROCEDURE IN STABLE CONDITION. PT DENIES PAIN. SCD APPLIED. BED DOWN LOCKED CALL LIGTH PLACED WITHIN REACH. WILL CONT TO MONITOR. PT DENIES PAIN REPORTS PAIN 05/28 TO HIP REVIEWED PAIN MANAGEMENT PLAN. VERBALIZED UNDERSTANDING TO CALL FOR ASSISTANCE NEEDED.
[2019-10-18 20:00] VITALS: BP 101/58
[2019-10-18] MEDS: POLYETHYLENE GLYCOL 3350 17 GM POWD.PACK PO SCH (21:45)
[2019-10-18] MEDS: TAMSULOSIN 0.4 MG CAP.SR.24H PO SCH (21:45)
[2019-10-18] MEDS: FINASTERIDE (5 MG) 5 MG TABLET PO SCH (21:54)
[2019-10-18] MEDS: ZOLPIDEM TARTRATE 10 MG TABLET PO PRN (23:23)
[2019-10-19 06:46] LABS: CALCIUM, SERUM 8.1 mg/dL (8.5-10.1); CREATININE 0.9 mg/dL (0.6-1.3); POTASSIUM 4.5 mmol/L (3.5-5.1); TOTAL PROTEIN, SERUM 5.4 g/dL (6.4-8.2)
[2019-10-19 06:47] LABS: BASOPHILS % (AUTO) 0.3 % (0.0-2.0); EOSINOPHILS % (AUTO) 0.2 % (0.0-6.0); HEMATOCRIT 39 % (39-51); LYMPHOCYTES # (AUTO) 0.4 /CMM (0.8-4.8); LYMPHOCYTES % (AUTO) 7.1 % (20.0-44.0); MEAN CORPUSCULAR HGB CONC 33 g/dl (31.0-36.0); MEAN CORPUSCULAR VOLUME 92 fL (80-96); MONOCYTES # (AUTO) 0.2 /CMM (0.1-1.30); NEUTROPHILS # (AUTO) 5.1 /CMM (1.8-8.9); NEUTROPHILS % (AUTO) 89.4 % (43.0-81.0); PLATELET COUNT (AUTO) 121 /CMM (150-450); RED BLOOD CELL COUNT(AUTO) 4.28 MIL/uL (4.5-6.0); WHITE BLOOD COUNT (AUTO) 5.7 K/uL (4.3-11.0)
--- NOTE | 2019-10-19 07:30 | NUR ---
MS RN NOTES PATIENT RECEIVED IN BED SLEEPING, EASILY AWAKEN BY TOUCH AND NAME. ALERT AND ORIENTED X 3. PATIENT ON 2L VIA NASAL CANNULA, NO SIGNS OF RESPIRATORY DISTRESS AT THIS TIME, WITH EVEN NON-LABORED BREATHING, AND WITH NO SOB NOTED. PATIENT SKIN WARM AND DRY TOUCH. IV ACCESS INTACT AND PATENT ON RIGHT UPPER ARM. PATIENT PRESENTS NO SIGNS OF PAIN OR DISCOMFORT AT THIS TIME. SAFETY PRECAUTIONS IMPLEMENTED WITH BED LOCKED, BED ALARM ON, BILATERAL SIDE RAILS UP, BED IN THE LOWEST POSITION, AND CALL LIGHT WITHIN EASY REACH OF THE PATIENT. WILL CONTINUE TO MONITOR PATIENT.
[2019-10-19] MEDS: BLOOD SUGAR DIAGNOSTIC 1 EACH STRIP IN SCH ×2 (07:37→12:23)
[2019-10-19 08:00] VITALS: BP 129/65
[2019-10-19] MEDS: PANTOPRAZOLE 40 MG TABLET.DR PO SCH (08:27)
[2019-10-19] MEDS: FOLIC ACID 1 MG TABLET PO SCH (08:27)
[2019-10-19] MEDS: DOCUSATE SODIUM 250 MG CAPSULE PO SCH (08:27)
[2019-10-19] MEDS: AMIODARONE HCL 200 MG TABLET PO SCH (08:28)
[2019-10-19] MEDS: CARVEDILOL 12.5 MG TABLET PO SCH (08:30)
[2019-10-19 09:00] VITALS: BP 106/62
[2019-10-19] MEDS: LISINOPRIL (5MG) 5 MG TABLET PO SCH (09:00)
[2019-10-19] MEDS ORDERED: METO5TAB7 PO (10:05)
[2019-10-19] MEDS ORDERED: MAGN400T26 PO (10:05)
[2019-10-19] MEDS ORDERED: Blood Sugar Diagnostic IN (10:05)
[2019-10-19] MEDS ORDERED: FINA5TAB11 PO (10:05)
[2019-10-19] MEDS ORDERED: ACET325T53 PO (10:05)
[2019-10-19] MEDS ORDERED: POLY17PO4 PO (10:05)
[2019-10-19] MEDS ORDERED: QUET50TA79 PO (10:05)
[2019-10-19] MEDS ORDERED: HYDR-3972 PO (10:05)
[2019-10-19] MEDS ORDERED: AMIO200T4 PO (10:05)
[2019-10-19] MEDS ORDERED: LISI-607 PO (10:05)
[2019-10-19] MEDS ORDERED: QUET25TA PO (10:05)
[2019-10-19] MEDS ORDERED: LISI2.5T2 PO (10:05)
[2019-10-19] MEDS ORDERED: DOCU250C14 PO (10:05)
[2019-10-19] MEDS ORDERED: ZOLP10TA2 PO ×2 (10:05)
[2019-10-19] MEDS ORDERED: INSU100V28 SQ (10:05)
[2019-10-19] MEDS ORDERED: ROSU10TA2 PO (10:05)
[2019-10-19] MEDS ORDERED: NA P133E RC (10:05)
[2019-10-19] MEDS ORDERED: LORA-259 PO (10:05)
[2019-10-19] MEDS ORDERED: FOLI0.8T PO (10:05)
[2019-10-19] MEDS ORDERED: WARF6TAB23 PO (10:05)
[2019-10-19] MEDS ORDERED: CARV12.52 PO (10:05)
[2019-10-19] MEDS ORDERED: MEXI150C17 PO (10:05)
[2019-10-19] MEDS ORDERED: OMEG-72 PO (10:05)
[2019-10-19] MEDS ORDERED: SPIR25TA6 PO (10:05)
[2019-10-19] MEDS ORDERED: PANT40TA2 PO (10:05)
[2019-10-19] MEDS ORDERED: TAMS-12 PO (10:05)
--- NOTE | 2019-10-19 10:30 | NUR ---
MS RN NOTES PATIENT SEEN BY DR. GRANT, PER MD PATIENT IS CLEARED FOR DISCHARGE TO ALF FACILITY. INFORMED MD, MORNING MEDICATION UNAVAILABLE, MEXITIL CAPSULE 150mg, DUE TO BEING PROVIDED BY FAMILY. WILL CONTINUE TO MONITOR PATIENT AT THIS TIME.
[2019-10-19] MEDS: INSULIN REGULAR, HUMAN 100 UNIT/ML 3 ML VIAL SQ PRN (12:25)
--- NOTE | 2019-10-19 12:25 | NUR ---
MS RN NOTES PATIENT'S BLOOD SUGAR 244, PER SLIDING SCALE PROTOCOL, 6 UNITS OF INSULIN ADMINISTERED. LUNCH TRAY PROVIDED. WILL CONTINUE TO MONITOR PATIENT.
--- NOTE | 2019-10-19 14:45 | NUR ---
MS RN NOTES PATIENT LEFT VIA GURNEY, MEDICALLY STABLE FOR DISCHARGE. PATIENT ALERT AND ORIENTED X 3. VITAL SIGNS WNL. PATIENT'S RIGHT UPPER ARM PICC LINE REMOVED, CATHETER TIP INTACT, APPLIED PRESSURE TO SITE, AND DRESSING IN PLACE. PATIENT SKIN KEPT CLEAN AND DRY. PROVIDED EXIT CARE TO PATIENT. ALL BELONGINGS ACCOUNTED FOR. ID BAND REMOVED. PROVIDED DISCHARGE FOLDER TO PATIENT. CALLED [place], REPORT GIVEN TO ARUN SALAS.
== END 2019-10-19 14:33 | DRG 291 ==
LOC: ER 18:37 → TELE 21:41 → MED 10-12 11:17
PROVIDERS: ADMIT Family Medicine; ATTEND Family Medicine
PROC: 02HV33Z Insertion of Infusion Device into Superior Vena Cava, Percutaneous Approach (ICD-10-PCS; principal; 2019-10-12)
PROC: B548ZZA Ultrasonography of Superior Vena Cava, Guidance (ICD-10-PCS; 2019-10-12)
PROC: 0W993ZZ Drainage of Right Pleural Cavity, Percutaneous Approach (ICD-10-PCS; 2019-10-17)
PROC: BQ01YZZ Plain Radiography of Left Hip using Other Contrast (ICD-10-PCS; 2019-10-18)
DX: I13.0 Hypertensive heart and chronic kidney disease with heart failure and stage 1 through stage 4 chronic kidney disease, or unspecified chronic kidney disease (principal); A41.9 Sepsis, unspecified organism; N17.0 Acute kidney failure with tubular necrosis; K72.00 Acute and subacute hepatic failure without coma; J15.9 Unspecified bacterial pneumonia; G92 Toxic encephalopathy; G93.1 Anoxic brain damage, not elsewhere classified; I50.22 Chronic systolic (congestive) heart failure; J98.11 Atelectasis; E87.1 Hypo-osmolality and hyponatremia; E87.2 Acidosis; M80.08XA Age-related osteoporosis with current pathological fracture, vertebra(e), initial encounter for fracture; E11.51 Type 2 diabetes mellitus with diabetic peripheral angiopathy without gangrene; K74.60 Unspecified cirrhosis of liver; I25.10 Atherosclerotic heart disease of native coronary artery without angina pectoris; N18.9 Chronic kidney disease, unspecified; N40.0 Benign prostatic hyperplasia without lower urinary tract symptoms; I48.91 Unspecified atrial fibrillation; E11.22 Type 2 diabetes mellitus with diabetic chronic kidney disease; D63.8 Anemia in other chronic diseases classified elsewhere; E78.5 Hyperlipidemia, unspecified; Z88.7 Allergy status to serum and vaccine; Z79.01 Long term (current) use of anticoagulants; Z79.899 Other long term (current) drug therapy; F03.90 Unspecified dementia, unspecified severity, without behavioral disturbance, psychotic disturbance, mood disturbance, and anxiety; E87.6 Hypokalemia; E86.1 Hypovolemia; E83.42 Hypomagnesemia; E11.65 Type 2 diabetes mellitus with hyperglycemia; E66.01 Morbid (severe) obesity due to excess calories; F43.10 Post-traumatic stress disorder, unspecified; M40.209 Unspecified kyphosis, site unspecified; M48.061 Spinal stenosis, lumbar region without neurogenic claudication; R13.10 Dysphagia, unspecified; K59.00 Constipation, unspecified; I70.0 Atherosclerosis of aorta; R29.6 Repeated falls; Z95.810 Presence of automatic (implantable) cardiac defibrillator; Z95.1 Presence of aortocoronary bypass graft; Z86.74 Personal history of sudden cardiac arrest; Z86.73 Personal history of transient ischemic attack (TIA), and cerebral infarction without residual deficits; Z86.718 Personal history of other venous thrombosis and embolism; Z87.11 Personal history of peptic ulcer disease; Z87.891 Personal history of nicotine dependence; Z86.59 Personal history of other mental and behavioral disorders; Z82.3 Family history of stroke; Z82.49 Family history of ischemic heart disease and other diseases of the circulatory system; M16.12 Unilateral primary osteoarthritis, left hip; I27.20 Pulmonary hypertension, unspecified; I25.2 Old myocardial infarction; J44.9 Chronic obstructive pulmonary disease, unspecified; I25.5 Ischemic cardiomyopathy; F41.9 Anxiety disorder, unspecified; F32.9 Major depressive disorder, single episode, unspecified; G89.29 Other chronic pain; G47.33 Obstructive sleep apnea (adult) (pediatric); I35.0 Nonrheumatic aortic (valve) stenosis; D50.9 Iron deficiency anemia, unspecified; F50.9 Eating disorder, unspecified; Z68.27 Body mass index [BMI] 27.0-27.9, adult; W19.XXXA Unspecified fall, initial encounter; Y92.009 Unspecified place in unspecified non-institutional (private) residence as the place of occurrence of the external cause; T50.2X5A Adverse effect of carbonic-anhydrase inhibitors, benzothiadiazides and other diuretics, initial encounter; Y92.9 Unspecified place or not applicable; M48.10 Ankylosing hyperostosis [Forestier], site unspecified; F39 Unspecified mood [affective] disorder
CPT/HCPCS: 36415; 36569; 36600; 70450-TC; 71045-TC; 72170-TC; 73020; 73502; 73700-TC; 80048-TC; 80053-TC; 80076-TC; 81000-TC; 82040-TC; 82550-TC; 82570-TC; 82962-TC; 83540-TC; 83605-TC; 83735-TC; 83935-TC; 83970; 84100-TC; 84155; 84155-TC; 84165; 84300-TC; 84443-TC; 84484-TC; 84550-TC; 85025-TC; 85610-TC; 85730-TC; 87040-TC; 87070-TC; 87075-TC; 87081-TC; 87086-TC; 87102-TC; 87116; 87206; 89051-TC; 93970-TC; 97110-TC; 97530-TC; 97535-TC; A4216; A4349; C1751; C9113; G0378; J0696; J0702; J1815; J1940; J2543; J2704; J3010; J3370; J3480; J3490; J7030; J7040; J7060; P9047; Q9966

== ENCOUNTER 2019-12-10 11:27 | Inpatient (IN) | payer MEDICARE, OTHER ==
[~2019-12-10] VITALS: Ht 180.3 cm; Wt 93.9 kg
[~2019-12-10 11:27] MED LIST changes: +ACET325T53 PO; +Blood Sugar Diagnostic IN; +CALC-15 PO; +FINA5TAB11 PO; +HYDR-3972 PO; +INSU100V28 SQ; +LISI-607 PO; +METO5TAB7 PO; +NA P133E RC; +PANT40TA2 PO; +POLY17PO4 PO; +QUET25TA PO; +TAMS-12 PO; +WARF6TAB23 PO; -WARF7.5T23 PO
--- NOTE | 2019-12-10 11:44 | NUR ---
IV access initiated and blood drawned and sent to lab.
--- NOTE | 2019-12-10 11:44 | NUR ---
LOBITO Rodriguez med from [facility] "weakness/Dx hyponatremia". On room air, breathing evenly and unlabored. connected to the monitor and pulse ox. kept comfortable, will continue to monitor accordingly.
[2019-12-10 11:46] LABS: BASOPHILS # (AUTO) 0.1 /CMM (0.0-0.2); BASOPHILS % (AUTO) 0.9 % (0.0-2.0); EOSINOPHILS % (AUTO) 1.6 % (0.0-6.0); HEMATOCRIT 36 % (39-51); HEMOGLOBIN 12.4 g/dL (13.5-17.5); LYMPHOCYTES # (AUTO) 1.2 /CMM (0.8-4.8); LYMPHOCYTES % (AUTO) 15.8 % (20.0-44.0); MEAN CORPUSCULAR HGB CONC 34 g/dl (31.0-36.0); MEAN CORPUSCULAR VOLUME 89 fL (80-96); MONOCYTES % (AUTO) 13.3 % (2.0-12.0); NEUTROPHILS # (AUTO) 5.1 /CMM (1.8-8.9); NEUTROPHILS % (AUTO) 68.4 % (43.0-81.0); PLATELET COUNT (AUTO) 140 /CMM (150-450); RED BLOOD CELL COUNT(AUTO) 4.05 MIL/uL (4.5-6.0); WHITE BLOOD COUNT (AUTO) 7.5 K/uL (4.3-11.0)
--- NOTE | 2019-12-10 11:52 | NUR ---
shonda at bedside for x-ray
[2019-12-10 11:57] LABS: CALCIUM, SERUM 8.4 mg/dL (8.5-10.1); CARBON DIOXIDE 28 mmol/L (21-32); CHLORIDE 94 mmol/L (98-107); CREATININE 1.9 mg/dL (0.6-1.3); GLUCOSE 99 mg/dL (74-106); POTASSIUM 4.3 mmol/L (3.5-5.1); SODIUM SERUM 130 mmol/L (136-145); UREA NITROGEN, BLOOD 76 mg/dL (7-18)
[2019-12-10 12:03] LABS: ALANINE AMINOTRANSFERASE 56 U/L (12-78); ALBUMIN 3.3 g/dL (3.4-5.0); ALKALINE PHOSPHATASE 74 U/L (46-116); ASPARTATE AMINOTRANSFERASE 38 U/L (15-37); BILIRUBIN,DIRECT 0.3 mg/dL (0.0-0.2); BILIRUBIN,TOTAL 0.6 mg/dL (0.2-1.0); TOTAL PROTEIN, SERUM 6.3 g/dL (6.4-8.2)
--- NOTE | 2019-12-10 12:19 | NUR ---
CALLED DR WYATT FOR A PEER TO PEER
[2019-12-10] MEDS ORDERED: MEGE400O4 PO (12:44)
[2019-12-10] MEDS ORDERED: SODI100037 PO (12:44)
[2019-12-10] MEDS ORDERED: SENN-18 PO (12:44)
[2019-12-10] MEDS ORDERED: MAGN400O6 PO (12:44)
[2019-12-10] MEDS ORDERED: BISA10SU11 RC (12:44)
[2019-12-10] MEDS ORDERED: IPRA0.2S49 IH (12:44)
[2019-12-10] MEDS ORDERED: INSU100V28 IJ (12:44)
[2019-12-10] MEDS ORDERED: ASCO500C16 PO (12:44)
[2019-12-10] MEDS ORDERED: DOCU-141 PO ×2 (12:44)
[2019-12-10] MEDS ORDERED: AMIN887L PO (12:44)
[2019-12-10] MEDS ORDERED: MULT-754 PO (12:44)
--- NOTE | 2019-12-10 12:52 | NUR ---
room 208
--- NOTE | 2019-12-10 12:57 | NUR ---
report given to Lee PINA for ricki
--- NOTE | 2019-12-10 13:26 | NUR ---
wheeled patient via gurney accompanied by RN and emt in no distress. WING COVERER at bedside to assume care.
[2019-12-10 13:30] VITALS: BP 118/58
--- NOTE | 2019-12-10 13:30 | NUR ---
tele sleever: admission admitted this 74 year old male pt from [facility] ([place]) with dx: hyponatremia, coumadin toxicity, and anemia. pt aware, a/ox4. no c/o pain at this time. oriented to room and surroundings. tele v pacing=60. skin assessment done and documented with photos taken and placed them in chart. wound consult ordered. vss, afebrile. no distress noted. will continue to monitor.
--- NOTE | 2019-12-10 14:45 | NUR ---
tele fire eater: notes dr. schuster notified and received admitting orders. all orders read back and carried out and acknowledged.
[2019-12-10] MEDS ORDERED: BISACODYL SUPP (10 MG) 10 MG/SUPP.RECT SUPP.RECT RC PRN (15:00)
[2019-12-10] MEDS ORDERED: DEXTROSE 50%-WATER 50 ML DISP.SYRIN IV PRN (15:00)
[2019-12-10] MEDS ORDERED: IPRATROPIUM NEB FS 0.5 MG/2.5 ML AMPUL.NEB IH PRN (15:00)
[2019-12-10] MEDS ORDERED: NA PHOS,M-B/NA PHOS,DI-BA 1 EA ENEMA RC PRN (15:00)
[2019-12-10] MEDS ORDERED: LISINOPRIL (5MG) 5 MG TABLET PO SCH (15:01)
[2019-12-10 16:00] VITALS: BP 118/63
[2019-12-10] MEDS ORDERED: METOLAZONE 5 MG TABLET PO SCH (16:00)
[2019-12-10] MEDS ORDERED: METOLAZONE 2.5 MG TABLET PO SCH (16:00)
--- NOTE | 2019-12-10 16:30 | NUR ---
tele digital computer operator: cardio consult seen by dr. honeycutt with orders. orders acknowledged.
[2019-12-10] MEDS: SODIUM CHLORIDE 1000 MG TABLET PO SCH (16:45)
[2019-12-10] MEDS: MEGESTROL ACETATE SUSP 400 MG/10 ML UDC PO SCH (16:45)
[2019-12-10] MEDS ORDERED: SPIRONOLACTONE 25 MG TABLET PO SCH (17:00)
[2019-12-10] MEDS ORDERED: MEXILETINE HCL 150 MG CAPSULE PO SCH (17:00)
[2019-12-10] MEDS ORDERED: OMEGA ACID ETHYL ESTERS PO SCH (17:00)
[2019-12-10] MEDS: IV NS 0.9% 1,000 ML IV PRN (17:04)
--- NOTE | 2019-12-10 17:35 | NUR ---
tele stone polisher hand: nephro consult seen and examined by dr. pichardo with orders. orders acknowledged. us kidney and duplex completed, md aware of results. ua collected via clean catch and sent to lab.
[2019-12-10] MEDS: INSULIN REGULAR, HUMAN 100 UNIT/ML 3 ML VIAL SQ PRN (17:36)
[2019-12-10] MEDS: BLOOD SUGAR DIAGNOSTIC 1 EACH STRIP IN SCH ×2 (17:36→22:03)
--- NOTE | 2019-12-10 18:17 | NUR ---
tele replanting machine crewman: notes pt ate 25% for dinner, not much appetite as stated. no c/o pain at this time. tele v pacing=60. no distress noted. needs attended. instructed to call for assistance.
[2019-12-10] MEDS: MAGNESIUM HYDROXIDE 30 ML UDC PO PRN (19:14)
--- NOTE | 2019-12-10 19:15 | NUR ---
tele day habilitation specialist: notes report given to melissa perales) for continuity of care.
[2019-12-10 19:46] LABS: CREATININE, URINE < 13.0 MG/DL (30.0-125.0); URINE TOTAL PROTEIN 5.3 mg/dL (0-11.9)
[2019-12-10 20:00] VITALS: BP 107/59
[2019-12-10] MEDS ORDERED: ZOLPIDEM TARTRATE 10 MG TABLET PO SCH (22:00)
[2019-12-10] MEDS: SENNOSIDES 8.6 MG TABLET PO SCH (22:02)
[2019-12-10] MEDS: FOLIC ACID 1 MG TABLET PO SCH (22:02)
[2019-12-10] MEDS: DOCUSATE SODIUM 100 MG CAPSULE PO SCH (22:02)
[2019-12-10] MEDS: ATORVASTATIN 10 MG TABLET PO SCH (22:02)
[2019-12-10] MEDS: CARVEDILOL 12.5 MG TABLET PO SCH (22:03)
[2019-12-10] MEDS: TAMSULOSIN 0.4 MG CAP.SR.24H PO SCH (22:03)
[2019-12-10] MEDS: QUETIAPINE FUMARATE 25 MG TABLET PO SCH (22:03)
[2019-12-10] MEDS: FINASTERIDE (5 MG) 5 MG TABLET PO SCH (22:04)
[2019-12-10] MEDS: ACETAMINOPHEN 325 MG TABLET PO PRN (22:13)
[2019-12-10] MEDS: ZOLPIDEM TARTRATE 10 MG TABLET PO PRN (22:13)
[2019-12-10] MEDS: POLYETHYLENE GLYCOL 3350 17 GM POWD.PACK PO SCH (22:13)
[2019-12-11] VITALS: BP 98/53
[2019-12-11 04:00] VITALS: BP 91/49
--- NOTE | 2019-12-11 06:35 | NUR ---
RN PM CLOSING NOTES. PT SEEN IN BED IN NO APPARENT DISTRESS. PT AWOKEN BY VOICE. BS CHECKED AND AT 100. BED DOWN LOCKED SR X3 CALL LIGTH WITHIN REACH. WILL ENDORSE TO ONCOMING SHIFT.
[2019-12-11 06:53] LABS: BASOPHILS # (AUTO) 0.1 /CMM (0.0-0.2); BASOPHILS % (AUTO) 0.8 % (0.0-2.0); HEMATOCRIT 33 % (39-51); HEMOGLOBIN 11.3 g/dL (13.5-17.5); LYMPHOCYTES # (AUTO) 1.2 /CMM (0.8-4.8); MEAN CORPUSCULAR HGB CONC 34 g/dl (31.0-36.0); MEAN CORPUSCULAR VOLUME 87 fL (80-96); MONOCYTES # (AUTO) 0.8 /CMM (0.1-1.30); MONOCYTES % (AUTO) 11.7 % (2.0-12.0); NEUTROPHILS # (AUTO) 4.4 /CMM (1.8-8.9); NEUTROPHILS % (AUTO) 67.5 % (43.0-81.0); PLATELET COUNT (AUTO) 130 /CMM (150-450); RED BLOOD CELL COUNT(AUTO) 3.76 MIL/uL (4.5-6.0); WHITE BLOOD COUNT (AUTO) 6.5 K/uL (4.3-11.0)
[2019-12-11 07:15] LABS: CALCIUM, SERUM 7.8 mg/dL (8.5-10.1); CARBON DIOXIDE 25 mmol/L (21-32); CHLORIDE 94 mmol/L (98-107); CREATININE 1.7 mg/dL (0.6-1.3); GLUCOSE 113 mg/dL (74-106); PHOSPHORUS 3.2 mg/dL (2.5-4.9); POTASSIUM 4.2 mmol/L (3.5-5.1); SODIUM SERUM 128 mmol/L (136-145); UREA NITROGEN, BLOOD 68 mg/dL (7-18)
--- NOTE | 2019-12-11 07:30 | NUR ---
RN Opening note Received patient AO x 3, able to responds all stimuli, does no c/o pain or distress. Skin is warm to touch, keep clean/dry, intact IV site. Respiratory even and unlabored on room air, O2sat 100%. Keep bed in locked with elevated HOB for ensure airway and aspiration precaution. Call light within reach, will continue to monitor.
[2019-12-11 07:31] LABS: CREATINE KINASE, TOTAL 69 U/L (39-308); IRON, SERUM 104 ug/dl (50-175); THYROID STIMULATING HORMONE 1.435 uIU/mL (0.358-3.74); URIC ACID 7.5 mg/dL (2.6-7.2)
[2019-12-11 08:00] VITALS: BP 101/54
[2019-12-11] MEDS ORDERED: DOCUSATE SODIUM 100 MG CAPSULE PO SCH (09:00)
[2019-12-11] MEDS: CARVEDILOL 12.5 MG TABLET PO SCH ×2 (09:00→21:00)
[2019-12-11] MEDS: PROSOURCE / PROSTAT (PYXIS) 30 ML UDC PO SCH (09:08)
[2019-12-11] MEDS: ASCORBIC ACID 500 MG TABLET PO SCH (09:08)
[2019-12-11] MEDS: MEGESTROL ACETATE SUSP 400 MG/10 ML UDC PO SCH ×2 (09:08→16:34)
[2019-12-11] MEDS: MAGNESIUM OXIDE 400 MG TABLET PO SCH (09:08)
[2019-12-11] MEDS: DOCUSATE SODIUM 250 MG CAPSULE PO SCH (09:09)
[2019-12-11] MEDS: SODIUM CHLORIDE 1000 MG TABLET PO SCH ×3 (09:09→16:35)
[2019-12-11] MEDS: AMIODARONE HCL 200 MG TABLET PO SCH (09:09)
[2019-12-11] MEDS: BLOOD SUGAR DIAGNOSTIC 1 EACH STRIP IN SCH ×4 (09:10→21:13)
[2019-12-11] MEDS: CALCIUM CARB 250MG /VITAMIN D 1 UDTAB PO SCH ×2 (09:10→16:35)
[2019-12-11] MEDS: MULTIVITAMINS,THERAGRAN 1 UDTAB TABLET PO SCH (09:12)
[2019-12-11] MEDS: PANTOPRAZOLE 40 MG TABLET.DR PO SCH (09:12)
--- NOTE | 2019-12-11 09:32 | NUR ---
WOUND CARE CONSULT: REVIEWED CHART, NURSING DOCUMENTATION AND PHOTOS WHICH INDICATE REDNESS/RASH TO BUTTOCKS, MULTIPLE SKIN DISCOLORATIONS AND LOWER LEG WOUND, PRESENT ON ADMISSION. RECOMMENDATIONS MADE FOR SKIN PROTECTION. RECOMMEND DPM CONSULT. DR GARCIA NOTIFIED OF CONSULT REQUEST. MD IN AGREEMENT WITH PLAN OF CARE.
[2019-12-11] MEDS ORDERED: Z GUARD REMEDY 2 OZ OINT TP PRN (10:00)
[2019-12-11] MEDS: Z GUARD REMEDY 2 OZ OINT TP SCH (10:00)
[2019-12-11 16:00] VITALS: BP 104/55
[2019-12-11] MEDS: INSULIN REGULAR, HUMAN 100 UNIT/ML 3 ML VIAL SQ PRN ×2 (16:37→16:44)
[2019-12-11] MEDS: CLOTRIMAZOLE 1% 15 GM TUBE TP SCH (16:39)
--- NOTE | 2019-12-11 18:55 | NUR ---
Patient transferred to room 105, given report Dayo/ARUN. Pt in stable condition.
[2019-12-11 20:00] VITALS: BP_SYST 100; BP_SYST 106; BP_DIAS 47; BP_DIAS 60
--- NOTE | 2019-12-11 20:00 | NUR ---
MS-1/CYLINDER BLOCK MECHANIC PT UNABLE TO STAND FOR ORTHOSTATIC BP. SUPINE AND SITTING POSITIONS CHARTED.
[2019-12-11] MEDS: SENNOSIDES 8.6 MG TABLET PO SCH (21:08)
[2019-12-11] MEDS: DOCUSATE SODIUM 100 MG CAPSULE PO SCH (21:08)
[2019-12-11] MEDS: TAMSULOSIN 0.4 MG CAP.SR.24H PO SCH (21:13)
[2019-12-11] MEDS: QUETIAPINE FUMARATE 25 MG TABLET PO SCH (21:13)
[2019-12-11] MEDS: ATORVASTATIN 10 MG TABLET PO SCH (21:13)
[2019-12-11] MEDS: FOLIC ACID 1 MG TABLET PO SCH (21:13)
[2019-12-11] MEDS: FINASTERIDE (5 MG) 5 MG TABLET PO SCH (21:13)
[2019-12-11] MEDS: POLYETHYLENE GLYCOL 3350 17 GM POWD.PACK PO SCH (21:13)
[2019-12-11] MEDS: ZOLPIDEM TARTRATE 10 MG TABLET PO PRN (22:01)
[2019-12-11] MEDS: ACETAMINOPHEN 325 MG TABLET PO PRN (22:01)
[2019-12-11] MEDS: IV NS 0.9% 1,000 ML IV PRN (22:06)
[2019-12-12 04:00] VITALS: BP 102/46
[2019-12-12 06:41] LABS: BASOPHILS % (AUTO) 0.6 % (0.0-2.0); EOSINOPHILS % (AUTO) 1.6 % (0.0-6.0); HEMATOCRIT 35 % (39-51); LYMPHOCYTES # (AUTO) 1.2 /CMM (0.8-4.8); MEAN CORPUSCULAR HGB CONC 34 g/dl (31.0-36.0); MEAN CORPUSCULAR VOLUME 88 fL (80-96); MONOCYTES # (AUTO) 0.8 /CMM (0.1-1.30); MONOCYTES % (AUTO) 11.6 % (2.0-12.0); NEUTROPHILS # (AUTO) 4.7 /CMM (1.8-8.9); NEUTROPHILS % (AUTO) 69.2 % (43.0-81.0); PLATELET COUNT (AUTO) 127 /CMM (150-450); RED BLOOD CELL COUNT(AUTO) 3.97 MIL/uL (4.5-6.0); WHITE BLOOD COUNT (AUTO) 6.8 K/uL (4.3-11.0)
[2019-12-12 08:00] VITALS: BP 96/48
[2019-12-12] MEDS: BLOOD SUGAR DIAGNOSTIC 1 EACH STRIP IN SCH ×4 (08:09→21:34)
[2019-12-12] MEDS: CALCIUM CARB 250MG /VITAMIN D 1 UDTAB PO SCH ×2 (08:10→17:24)
[2019-12-12] MEDS: MAGNESIUM OXIDE 400 MG TABLET PO SCH (08:10)
[2019-12-12] MEDS: PANTOPRAZOLE 40 MG TABLET.DR PO SCH (08:10)
[2019-12-12] MEDS: ASCORBIC ACID 500 MG TABLET PO SCH (08:10)
[2019-12-12] MEDS: DOCUSATE SODIUM 250 MG CAPSULE PO SCH (08:10)
[2019-12-12] MEDS: MEGESTROL ACETATE SUSP 400 MG/10 ML UDC PO SCH ×2 (08:10→17:24)
[2019-12-12] MEDS: INSULIN REGULAR, HUMAN 100 UNIT/ML 3 ML VIAL SQ PRN ×3 (08:12→17:31)
[2019-12-12] MEDS: AMIODARONE HCL 200 MG TABLET PO SCH (08:13)
[2019-12-12] MEDS: CARVEDILOL 12.5 MG TABLET PO SCH ×2 (08:14→21:24)
[2019-12-12] MEDS: MULTIVITAMINS,THERAGRAN 1 UDTAB TABLET PO SCH (08:17)
[2019-12-12] MEDS: SODIUM CHLORIDE 1000 MG TABLET PO SCH ×3 (08:17→17:24)
[2019-12-12] MEDS: PROSOURCE / PROSTAT (PYXIS) 30 ML UDC PO SCH (08:17)
[2019-12-12] MEDS: Z GUARD REMEDY 2 OZ OINT TP SCH (08:18)
[2019-12-12] MEDS: CLOTRIMAZOLE 1% 15 GM TUBE TP SCH ×2 (08:25→17:33)
[2019-12-12 08:26] LABS: CARBON DIOXIDE 24 mmol/L (21-32); CHLORIDE 96 mmol/L (98-107); POTASSIUM 4.5 mmol/L (3.5-5.1); SODIUM SERUM 130 mmol/L (136-145)
[2019-12-12 08:27] LABS: ALKALINE PHOSPHATASE 62 U/L (46-116); BILIRUBIN,TOTAL 0.7 mg/dL (0.2-1.0); TOTAL PROTEIN, SERUM 5.7 g/dL (6.4-8.2)
[2019-12-12 08:28] LABS: ALANINE AMINOTRANSFERASE 42 U/L (12-78); ASPARTATE AMINOTRANSFERASE 26 U/L (15-37); MAGNESIUM 3.1 mg/dL (1.8-2.4)
[2019-12-12 08:29] LABS: UREA NITROGEN, BLOOD 57 mg/dL (7-18)
[2019-12-12 08:30] LABS: CALCIUM, SERUM 8.3 mg/dL (8.5-10.1); GLUCOSE 86 mg/dL (74-106)
[2019-12-12 08:33] LABS: CREATININE 1.3 mg/dL (0.6-1.3)
[2019-12-12 08:47] LABS: URINE SODIUM, RANDOM 37 mmol/l (40-220)
--- NOTE | 2019-12-12 09:24 | NUR ---
RN MS OPENING NOTE RECEIVED PT IN BED, AWAKE, ALERT AND ORIENTED X3/4. PT SPEAKS DANISH AND ABLE TO MAKE HIS NEEDS KNOWN. PT IS FULL CODE ON ROOM AIR SATURATING AT 97% AT THIS TIME. NO ACUTE DISTRESS OR SON NOTED AT THIS TIME. PT IS IN STABLE CONDITION. PT IS ABLE TO USE THE URINAL. PT IS ON BEDREST. PT HAS SOME SACRAL REDNESS WILL APPLY Z-GUARD ORDERED. PT HAS A RIGHT AC 20' AND A LEFT HAND 20' THAT IS INTACT, PATENT AND FLUSHING WELL AT THIS TIME. NO S/S OF INFECTION OR INFILTRATION NOTED. PT IS ON REGULAR DIET AND ABLE TO EAT WITHOUT ASSISTANCE. CALL LIGHT WITHIN REACH AND FUNCTIONING. BED LOCKED AND IN LOWEST POSITION. WILL CONTINUE TO MONITOR AND ASSESS PT.
[2019-12-12 10:32] LABS: OSMOLALITY,URINE 422 mOS/kg (340-1090)
[2019-12-12 12:00] VITALS: BP 106/54
[2019-12-12] MEDS ORDERED: ENOXAPARIN SODIUM 40 MG/0.4 ML DISP.SYRIN SQ ONE ×2 (15:00→15:30)
[2019-12-12 16:00] VITALS: BP_SYST 108; BP_SYST 121; BP_DIAS 52; BP_DIAS 73
--- NOTE | 2019-12-12 19:30 | NUR ---
DEBBIE/RN OPENING NOTES RECEIVED PATIENT IN BED AWAKE, ALERT AND ORIENTED X4. PATIENT IS COMFORTABLE AT THIS TIME WITH NO ACUTE DISTRESS OR SOB NOTED. PATIENT IS ON ROOM AIR SATURATING AT 99% AT THIS TIME. PATIENT IS ABLE TO USE THE URINAL. PATIENT HAS A RIGHT AC 20#G THAT IS INTACT, PATENT AND FLUSHING WELL. NO S/S OF INFECTION OR INFILTRATION NOTED AT THIS TIME. SAFETY MEASURES ARE IN PLACE BED IS LOCKED AND PLACED IN THE LOW POSITION SIDE RAILS UP X 3, CALL LIGHT IS WITHIN REACH. WILL CONTINUE TO MONITOR DURING SHIFT.
[2019-12-12 19:53] VITALS: BP 114/52
--- NOTE | 2019-12-12 19:56 | NUR ---
SITE DAMAGE PREVENTION TECHNICIAN/DEBBIE CLOSING NOTE PT IS CURRENTLY IN BED AWAKE, ALERT AND ORIENTED X4. PT IS ABLE TO MAKE HIS NEEDS KNOWN AND SPEAKS IRISH. PT IS ON A REGULAR DIET AND IS FULL CODE. PT IS IN STABLE CONDITION AT THIS TIME WITH NO ACUTE DISTRESS OR SOB NOTED. PT IS ON ROOM AIR SATURATING AT 99% AT THIS TIME. PT IS ABLE TO USE THE URINAL. PT HAS A RIGHT AC 20' THAT IS INTACT, PATENT AND FLUSHING WELL. NO S/S OF INFECTION OR INFILTRATION NOTED AT THIS TIME. ALL NEEDS MET AND ASSESSED WITH HELP OF JORDON BARRIOS. CALL LIGHT WITHIN REACH AND FUNCTIONING. BED LOCKED AND IN LOWEST POSITION. WILL ENDORSE TO NEXT SHIFT NURSE FOR BRUNO.
[2019-12-12 20:00] VITALS: BP 114/52
[2019-12-12] MEDS: SENNOSIDES 8.6 MG TABLET PO SCH (21:23)
[2019-12-12] MEDS: FINASTERIDE (5 MG) 5 MG TABLET PO SCH (21:23)
[2019-12-12] MEDS: ATORVASTATIN 10 MG TABLET PO SCH (21:23)
[2019-12-12] MEDS: FOLIC ACID 1 MG TABLET PO SCH (21:23)
[2019-12-12] MEDS: DOCUSATE SODIUM 100 MG CAPSULE PO SCH (21:23)
[2019-12-12] MEDS: POLYETHYLENE GLYCOL 3350 17 GM POWD.PACK PO SCH (21:23)
[2019-12-12] MEDS: HYDROCODONE/APAP 5/325MG TABLET PO PRN (21:24)
[2019-12-12] MEDS: QUETIAPINE FUMARATE 25 MG TABLET PO SCH (21:24)
--- NOTE | 2019-12-12 21:30 | NUR ---
TELE/RN NOTES PATIENT COMPLAINING OF PAIN GENERAL BODY. GIVEN NORCO 5 MG PO. V/S ARE STABLE WILL CONTINUE TO MONITOR.
[2019-12-12] MEDS: TAMSULOSIN 0.4 MG CAP.SR.24H PO SCH (21:36)
[2019-12-12] MEDS: ZOLPIDEM TARTRATE 10 MG TABLET PO PRN (22:40)
--- NOTE | 2019-12-12 22:45 | NUR ---
TELE/RN NOTES PATIENT REQUESTING SLEEP AID. AMBIEN 10 MG PO GIVEN. V/S ARE STABLE. WILL CONTINUE TO MONITOR.
[2019-12-13 00:06] VITALS: BP 102/46
--- NOTE | 2019-12-13 01:30 | NUR ---
RN NOTE RECEIVED PATIENT AROUND THIS TIME FROM RN NELSON. PATIENT IS RESTING, BREATHING IS EVEN AND UNLABORED. IN NO APPARENT DISTRESS NOTED. VITALS WNL. WILL CONTINUE TO MONITOR.
--- NOTE | 2019-12-13 01:35 | NUR ---
TELE/RN NOTES TRANSFERRED BRUNO OF CARE TO ARUN MANE. PATIENT IS IN STABLE CONDITION NO SIGNS OF DISTRESS NOTED.
[2019-12-13] MEDS: ENOXAPARIN SODIUM 80 MG/0.8 ML DISP.SYRIN SQ SCH ×2 (02:21→14:19)
[2019-12-13 04:00] VITALS: BP 112/55
[2019-12-13 04:27] VITALS: BP 112/55
--- NOTE | 2019-12-13 06:34 | NUR ---
RN NOTE PATIENT REMAINED STABLE THROUGHOUT THE NIGHT. NO SIGNIFICANT CHANGES NOTED. DUE MEDS GIVEN AND TOLERATED WELL. PATIENT KEPT CLEAN, DRY, AND COMFORTABLE. ALL NEEDS ATTENDED AND MET. WILL ENDORSE TO AM SHIFT RN FOR CONTINUATION OF CARE.
[2019-12-13 06:59] LABS: BASOPHILS % (AUTO) 0.7 % (0.0-2.0); HEMATOCRIT 32 % (39-51); LYMPHOCYTES # (AUTO) 1.1 /CMM (0.8-4.8); LYMPHOCYTES % (AUTO) 21.1 % (20.0-44.0); MEAN CORPUSCULAR HGB CONC 34 g/dl (31.0-36.0); MEAN CORPUSCULAR VOLUME 89 fL (80-96); MONOCYTES # (AUTO) 0.6 /CMM (0.1-1.30); NEUTROPHILS # (AUTO) 3.5 /CMM (1.8-8.9); NEUTROPHILS % (AUTO) 66.2 % (43.0-81.0); PLATELET COUNT (AUTO) 111 /CMM (150-450); WHITE BLOOD COUNT (AUTO) 5.3 K/uL (4.3-11.0)
--- NOTE | 2019-12-13 07:00 | NUR ---
LOG MARKER 1 PATIENT A/OX3 SEIZURE PRECAUTION IMPLEMENTED. PATIENT AWAKE. PATIENT HAS URINAL AT BED SITE . SACRAL REDNESS WITH MEPILEX. PATIENT IS FALL RISK , ALARM ON, WITH FALL PRECAUTION IMPLEMENTED. PATIENT HAS R AC 20#, WITH NS @ 70 ML /HR NO SIGNS OF INFILTRATION PATIENT AND FLUSHING. L HAND 22# NO SIGNS OF INFILTRATION, NO S/S OF INFECTION. BED LOCKED LOWEST POSITION CALL LIGHT WITH IN REACH ALL SAFETY MEASURE IMPLEMENTED PER HOSPITAL POLICY
[2019-12-13 07:11] LABS: ALBUMIN 2.9 g/dL (3.4-5.0); BILIRUBIN,TOTAL 0.8 mg/dL (0.2-1.0); CALCIUM, SERUM 7.9 mg/dL (8.5-10.1); CREATININE 1.2 mg/dL (0.6-1.3); POTASSIUM 4.2 mmol/L (3.5-5.1); TOTAL PROTEIN, SERUM 5.5 g/dL (6.4-8.2)
[2019-12-13 08:00] VITALS: BP 104/59
[2019-12-13] MEDS: CALCIUM CARB 250MG /VITAMIN D 1 UDTAB PO SCH ×2 (08:42→16:11)
[2019-12-13] MEDS: DOCUSATE SODIUM 250 MG CAPSULE PO SCH (08:42)
[2019-12-13] MEDS: MEGESTROL ACETATE SUSP 400 MG/10 ML UDC PO SCH ×2 (08:42→16:11)
[2019-12-13] MEDS: CARVEDILOL 12.5 MG TABLET PO SCH ×2 (08:43→21:00)
[2019-12-13] MEDS: SODIUM CHLORIDE 1000 MG TABLET PO SCH ×3 (08:44→16:12)
[2019-12-13] MEDS: MULTIVITAMINS,THERAGRAN 1 UDTAB TABLET PO SCH (08:44)
[2019-12-13] MEDS: MAGNESIUM OXIDE 400 MG TABLET PO SCH (08:44)
[2019-12-13] MEDS: ASCORBIC ACID 500 MG TABLET PO SCH (08:44)
[2019-12-13] MEDS: PANTOPRAZOLE 40 MG TABLET.DR PO SCH (08:44)
[2019-12-13] MEDS: AMIODARONE HCL 200 MG TABLET PO SCH (08:45)
[2019-12-13] MEDS: BLOOD SUGAR DIAGNOSTIC 1 EACH STRIP IN SCH ×5 (08:57→22:46)
[2019-12-13] MEDS: PROSOURCE / PROSTAT (PYXIS) 30 ML UDC PO SCH (08:58)
[2019-12-13] MEDS: Z GUARD REMEDY 2 OZ OINT TP SCH (08:59)
[2019-12-13] MEDS: CLOTRIMAZOLE 1% 15 GM TUBE TP SCH ×2 (08:59→16:28)
[2019-12-13 12:00] VITALS: BP 106/52
[2019-12-13] MEDS: MAGNESIUM HYDROXIDE 30 ML UDC PO PRN (15:37)
--- NOTE | 2019-12-13 16:24 | NUR ---
RECREATION AIDE - PATIENT REQUEST FOR SUPP. PATIENT COMPLAINS OF CONSTIPATION. INSERTED SUPP. PATIENT TOLERATED MEDICATION
[2019-12-13] MEDS: WARFARIN SODIUM 5 MG TABLET PO SCH (16:27)
[2019-12-13] MEDS: INSULIN REGULAR, HUMAN 100 UNIT/ML 3 ML VIAL SQ PRN ×3 (16:29→22:33)
--- NOTE | 2019-12-13 16:29 | NUR ---
MIX TECHNICIAN - PATIENT REFUSED INSULIN PATIENT BLOOD SUGAR 195 TEACHING PROVIDE TO PATIENT 3X . PATIENT STILL REFUSED INSULIN FOR BLOOD SUGAR
[2019-12-13] MEDS ORDERED: BISACODYL SUPP (10 MG) 10 MG/SUPP.RECT SUPP.RECT RC PRN (16:30)
--- NOTE | 2019-12-13 17:27 | NUR ---
INDUSTRIAL TECHNOLOGIST - PATIENT POOP- PATIENT FEELS MUCH BETTER HE STATED
--- NOTE | 2019-12-13 18:40 | NUR ---
ORNAMENTAL METALWORK DESIGNER 1 CLOSING: Pt A/Ox3. PT IS ON 2L NC WITH OXYGEN SATURATION OVER 95%. NO SIGNS OF RESPIRATORY DISTRESS. NO PAIN. VITALS STABLE AT THIS TIME. PT BM'D x3. PT SKIN INTACT WITH SACRAL REDNESS, MEPILEX APPLIED. PT BED ALARM IS ON, FALL PRECAUTIONS IMPLEMENTED. PATIENT ON REGULAR DIET. PT HAS RAC #20, LH #22, NO SIGNS OF INFILTRATION. NO SIGNS OF INFECTION. DRESSING CLEAN AND DRY. IV PATENT AND FLUSHED. PT BED IN LOWEST LOCKED POSITION. CALL LIGHT WITHIN REACH. ALL SAFETY MEASURES IMPLEMENTED PER HOSPITAL POLICY. PT TURNED 2QH.
[2019-12-13 20:00] VITALS: BP 114/61
--- NOTE | 2019-12-13 20:00 | NUR ---
DEPUTY SHERIFF BAILIFF NOTES. PT IS IN BED AWAKE, ALERT AND ORIENTED X4. PT IS ABLE TO MAKE HIS NEEDS KNOWN AND SPEAKS BELGIAN. PT IS ON PT IS IN STABLE CONDITION AT THIS TIME WITH NO ACUTE DISTRESS OR SOB NOTED. ON V PACING ,PT IS ON 2LITERS VIA NC SATURATING AT 98% AT THIS TIME. PT IS ABLE TO USE THE URINAL. WITH RIGHT AC g#20 L HAND g22 INTACT& PATENT AND FLUSHING WELL. NO S/S OF INFECTION OR INFILTRATION NOTED AT THIS TIME. ALL NEEDS ATTENDED TOO. CALL LIGHT WITHIN REACH AND FUNCTIONING. BED LOCKED AND IN LOWEST POSITION.WILL CONTINUE TO MONITOR PTS.
[2019-12-13] MEDS: TAMSULOSIN 0.4 MG CAP.SR.24H PO SCH (21:39)
[2019-12-13] MEDS: FOLIC ACID 1 MG TABLET PO SCH (21:39)
[2019-12-13] MEDS: DOCUSATE SODIUM 100 MG CAPSULE PO SCH (21:39)
[2019-12-13] MEDS: ATORVASTATIN 10 MG TABLET PO SCH (21:40)
[2019-12-13] MEDS: SENNOSIDES 8.6 MG TABLET PO SCH (21:40)
[2019-12-13] MEDS: POLYETHYLENE GLYCOL 3350 17 GM POWD.PACK PO SCH (21:40)
[2019-12-13] MEDS: QUETIAPINE FUMARATE 25 MG TABLET PO SCH (21:40)
[2019-12-13] MEDS: FINASTERIDE (5 MG) 5 MG TABLET PO SCH (21:40)
[2019-12-13] MEDS: ZOLPIDEM TARTRATE 10 MG TABLET PO PRN (22:22)
[2019-12-13] MEDS: ACETAMINOPHEN 325 MG TABLET PO PRN (22:22)
--- NOTE | 2019-12-13 22:30 | NUR ---
TRAVEL OT NOTES BLOOD SUGAR AT 10PM IS 147 MMOL/DL 2 UNITS SUPPOSED TO BE GIVEN PER SLIDING SCALE BUT WAS NOT GIVEN D/T PTS REFUSAL.
[2019-12-14] VITALS: BP 103/46
--- NOTE | 2019-12-14 01:33 | NUR ---
NICKEL PLANT OPERATOR NOTES, DUE MEDS GIVEN ORDERED NO ASE NOTED . Addendum: 12/14/19 at 0136 by JOSE LOPEZ RN DUE MEDS GIVEN AT 9PM
[2019-12-14] MEDS: ENOXAPARIN SODIUM 80 MG/0.8 ML DISP.SYRIN SQ SCH ×2 (03:48→15:44)
[2019-12-14 04:00] VITALS: BP 99/47
--- NOTE | 2019-12-14 06:19 | NUR ---
telephone surveyor notes Pts in bed still sleep , v/s stable afebrile remains on 2 liters of o2 via nc saturating well ,all needs attended too, call light within reach, kept pts clean dry and comfortable,will endorse to rn day shift for continuity of care.
[2019-12-14 07:00] LABS: ALBUMIN 2.9 g/dL (3.4-5.0); BILIRUBIN,TOTAL 0.5 mg/dL (0.2-1.0); CALCIUM, SERUM 8.3 mg/dL (8.5-10.1); CREATININE 1.1 mg/dL (0.6-1.3); POTASSIUM 4.4 mmol/L (3.5-5.1); TOTAL PROTEIN, SERUM 5.6 g/dL (6.4-8.2)
--- NOTE | 2019-12-14 07:00 | NUR ---
AUTO SERVICE MECHANIC 1 PATIENT A/OX3 . PATIENT AWAKE WATCHING TV . PATIENT HAS URINAL AT BED SITE . PATIENT COOPERATIVE WITH CARE. . SACRAL REDNESS WITH MEPILEX. PATIENT IS FALL RISK , ALARM ON, WITH FALL PRECAUTION IMPLEMENTED. PATIENT HAS R AC 20#, LHAND 22 NO SIGNS OF INFILTRATION PATIENT AND FLUSHING. L HAND 22# NO SIGNS OF INFILTRATION, NO S/S OF INFECTION. BED LOCKED LOWEST POSITION CALL LIGHT WITH IN REACH ALL SAFETY MEASURE IMPLEMENTED PER HOSPITAL POLICY .
[2019-12-14] MEDS: PROSOURCE / PROSTAT (PYXIS) 30 ML UDC PO SCH (09:00)
[2019-12-14] MEDS: AMIODARONE HCL 200 MG TABLET PO SCH ×2 (09:00→09:24)
[2019-12-14] MEDS: CARVEDILOL 12.5 MG TABLET PO SCH ×2 (09:00→21:37)
[2019-12-14] MEDS: MAGNESIUM OXIDE 400 MG TABLET PO SCH (09:10)
[2019-12-14] MEDS: MEGESTROL ACETATE SUSP 400 MG/10 ML UDC PO SCH ×2 (09:10→17:00)
[2019-12-14] MEDS: BLOOD SUGAR DIAGNOSTIC 1 EACH STRIP IN SCH ×4 (09:10→22:42)
[2019-12-14] MEDS: MULTIVITAMINS,THERAGRAN 1 UDTAB TABLET PO SCH (09:10)
[2019-12-14] MEDS: CALCIUM CARB 250MG /VITAMIN D 1 UDTAB PO SCH ×2 (09:11→16:57)
[2019-12-14] MEDS: ASCORBIC ACID 500 MG TABLET PO SCH (09:11)
[2019-12-14] MEDS: DOCUSATE SODIUM 250 MG CAPSULE PO SCH (09:11)
[2019-12-14] MEDS: SODIUM CHLORIDE 1000 MG TABLET PO SCH ×4 (09:11→17:00)
[2019-12-14] MEDS: PANTOPRAZOLE 40 MG TABLET.DR PO SCH (09:14)
[2019-12-14] MEDS: CLOTRIMAZOLE 1% 15 GM TUBE TP SCH ×2 (09:14→18:23)
[2019-12-14] MEDS: Z GUARD REMEDY 2 OZ OINT TP SCH (09:14)
[2019-12-14 12:00] VITALS: BP 124/88
[2019-12-14 15:55] VITALS: BP 114/57
[2019-12-14] MEDS: HYDROCODONE/APAP 5/325MG TABLET PO PRN (16:58)
[2019-12-14] MEDS: WARFARIN SODIUM 5 MG TABLET PO SCH (17:00)
--- NOTE | 2019-12-14 18:26 | NUR ---
MEAT SOAKER 1 CLOSING Pt A/Ox3. PT IS ON 2L NC WITH OXYGEN SATURATION OVER 95%. NO SIGNS OF RESPIRATORY DISTRESS. NO PAIN. VITALS STABLE AT THIS TIME. . PT SKIN INTACT WITH SACRAL REDNESS, MEPILEX APPLIED. PT BED ALARM IS ON, FALL PRECAUTIONS IMPLEMENTED. PATIENT ON REGULAR DIET. PT HAS RAC #20, LH #22, NO SIGNS OF INFILTRATION. NO SIGNS OF INFECTION. DRESSING CLEAN AND DRY. IV PATENT AND FLUSHED. PT BED IN LOWEST LOCKED POSITION. CALL LIGHT WITHIN REACH. ALL SAFETY MEASURES IMPLEMENTED PER HOSPITAL POLICY. PT TURNED 2QH.
--- NOTE | 2019-12-14 19:20 | NUR ---
RN OPENING NOTES: RECEIVED PT A/OX4 IN BED RESTING COMFORTABLY. PATIENT IN NO S/SX OF ACUTE DISTRESS AT THIS TIME. NO SOB NOTED. PATIENT'S BREATHING IS EVEN AND UNLABORED. PATIENT IS ON RA; TOLERATING WELL, SATURATING @98% UPON RECEIVED. PATIENT ON TELE MONITORING READING SINUS RHYTHM HR IS @61. NOTED IV SITE ON R AC #20 AND L WRIST #22 ;BOTH PATENT, INTACT AND FLUSHING WELL NO S/S OF INFECTION OR INFILTRATION. PATIENT HAS URINAL AT BEDSIDE. PATIENT ON REGULAR DIET. SAFETY MEASURES HAVE BEEN PROVIDED AND IMPLEMENTED. PATIENT BED ALARM IS ON. HEAD OF BED ELEVATED. BED IS LOCKED, IN LOWEST POSITION AND SIDE RAILS UP. CALL LIGHT WITHIN REACH OF THE PATIENT. WILL CONTINUE TO MONITOR AND REASSESS FOR ANY CHANGES.
[2019-12-14 20:00] VITALS: BP_SYST 111; BP_SYST 121; BP_DIAS 73; BP_DIAS 86
[2019-12-14] MEDS: ATORVASTATIN 10 MG TABLET PO SCH (21:36)
[2019-12-14] MEDS: SENNOSIDES 8.6 MG TABLET PO SCH (21:36)
[2019-12-14] MEDS: FOLIC ACID 1 MG TABLET PO SCH (21:36)
[2019-12-14] MEDS: TAMSULOSIN 0.4 MG CAP.SR.24H PO SCH (21:36)
[2019-12-14] MEDS: POLYETHYLENE GLYCOL 3350 17 GM POWD.PACK PO SCH (21:36)
[2019-12-14] MEDS: DOCUSATE SODIUM 100 MG CAPSULE PO SCH (21:36)
[2019-12-14] MEDS: QUETIAPINE FUMARATE 25 MG TABLET PO SCH (21:37)
[2019-12-14] MEDS: FINASTERIDE (5 MG) 5 MG TABLET PO SCH (21:37)
--- NOTE | 2019-12-14 22:00 | NUR ---
RN NOTES NO NOTED CHANGES TO PATIENT CONDITION/STATUS. OYSTER GROWER MADE AWARE. WILL CONTINUE TO MONITOR AND REASSESS FOR ANY CHANGES THROUGHOUT THE SHIFT.
[2019-12-14] MEDS: ZOLPIDEM TARTRATE 10 MG TABLET PO PRN (22:34)
[2019-12-14] MEDS: INSULIN REGULAR, HUMAN 100 UNIT/ML 3 ML VIAL SQ PRN (22:43)
[2019-12-14] MEDS: ACETAMINOPHEN 325 MG TABLET PO PRN (23:38)
[2019-12-15] VITALS: BP 109/56
--- NOTE | 2019-12-15 | NUR ---
RN NOTES NO NOTED CHANGES TO PATIENT CONDITION/STATUS. PURCHASING SPECIALIST MADE AWARE. WILL CONTINUE TO MONITOR AND REASSESS FOR ANY CHANGES THROUGHOUT THE SHIFT.
--- NOTE | 2019-12-15 02:00 | NUR ---
RN NOTES NO NOTED CHANGES TO PATIENT CONDITION/STATUS. SALES REPRESENTATIVE RURAL POWER MADE AWARE. WILL CONTINUE TO MONITOR AND REASSESS FOR ANY CHANGES THROUGHOUT THE SHIFT.
[2019-12-15] MEDS: ENOXAPARIN SODIUM 80 MG/0.8 ML DISP.SYRIN SQ SCH ×2 (02:58→14:58)
[2019-12-15 04:00] VITALS: BP 102/50
--- NOTE | 2019-12-15 04:00 | NUR ---
RN NOTES NO NOTED CHANGES TO PATIENT CONDITION/STATUS. RESAW OPERATOR MADE AWARE. WILL CONTINUE TO MONITOR AND REASSESS FOR ANY CHANGES THROUGHOUT THE SHIFT.
--- NOTE | 2019-12-15 06:00 | NUR ---
RN NOTES NO NOTED CHANGES TO PATIENT CONDITION/STATUS. RECRUITING CONSULTANT MADE AWARE. WILL CONTINUE TO MONITOR AND REASSESS FOR ANY CHANGES THROUGHOUT THE SHIFT
--- NOTE | 2019-12-15 06:51 | NUR ---
RN CLOSING NOTES PATIENT REMAINS IN ROOM IN NO SIGNS OF RESPIRATORY DISTRESS. PATIENT SATURATING 97% OF 02. VITAL SIGNS WNL. IV LINES MAINTAINED, INTACT, PATENT AND FLUSHING, MNO SITE REDNESS OR INFILTRATION. SAFETY PRECAUTIONS IN PLACE AND COMFORT MEASURES RENDERED. BED IN LOWEST POSITION, CALL LIGHT WITHIN REACH, BREAKS ON, SIDE RAILS UP. ALL NEEDS ATTENDED, MEDICATIONS GIVEN SCHEDULED AND ORDERED ; SHIFT ASSESSMENT/BEDBATH/SKIN CARE DONE. PATIENT KEPT CLEAN AND DRY. WILL ENDORSE TO INCOMING SHIFT FOR BRUNO WITH ALL PERTINENT INFO REGARDING PATIENT STATUS.
--- NOTE | 2019-12-15 07:30 | NUR ---
SLAT GRADER NOTES PATIENT A/OX3 . PATIENT AWAKE WATCHING TV . ON ROOM AIR, NO SOB. RESPIRATION UNLABORED. DENIES PAIN, PATIENT HAS R AC 20#, L HAND 22 BOTH FLUSHES WELL, BOTH SITES CLEAR. ON REGULAR DIET. PATIENT COOPERATIVE WITH CARE. SACRAL REDNESS WITH MEPILEX. SEE NURSING FLOWSHEET FOR SKIN ISSUES. BED LOCKED LOWEST POSITION CALL LIGHT WITH IN REACH ALL SAFETY MEASURE IMPLEMENTED PER HOSPITAL POLICY. WILL MONITOR.
[2019-12-15 08:00] VITALS: BP 107/53
[2019-12-15] MEDS: BLOOD SUGAR DIAGNOSTIC 1 EACH STRIP IN SCH ×4 (08:52→22:28)
[2019-12-15] MEDS: PANTOPRAZOLE 40 MG TABLET.DR PO SCH (08:53)
[2019-12-15] MEDS: MEGESTROL ACETATE SUSP 400 MG/10 ML UDC PO SCH ×2 (08:54→17:25)
[2019-12-15] MEDS: DOCUSATE SODIUM 250 MG CAPSULE PO SCH (08:54)
[2019-12-15] MEDS: MULTIVITAMINS,THERAGRAN 1 UDTAB TABLET PO SCH (08:54)
[2019-12-15] MEDS: SODIUM CHLORIDE 1000 MG TABLET PO SCH ×3 (08:55→17:27)
[2019-12-15] MEDS: ASCORBIC ACID 500 MG TABLET PO SCH (08:55)
[2019-12-15] MEDS: MAGNESIUM OXIDE 400 MG TABLET PO SCH (08:55)
[2019-12-15] MEDS: CALCIUM CARB 250MG /VITAMIN D 1 UDTAB PO SCH ×2 (08:55→17:25)
[2019-12-15] MEDS: PROSOURCE / PROSTAT (PYXIS) 30 ML UDC PO SCH (08:56)
[2019-12-15] MEDS: AMIODARONE HCL 200 MG TABLET PO SCH (08:57)
[2019-12-15] MEDS: CARVEDILOL 12.5 MG TABLET PO SCH ×2 (08:58→21:00)
[2019-12-15] MEDS: Z GUARD REMEDY 2 OZ OINT TP SCH (08:59)
[2019-12-15] MEDS: CLOTRIMAZOLE 1% 15 GM TUBE TP SCH ×2 (08:59→17:28)
[2019-12-15] MEDS ORDERED: LORAZEPAM 0.5 MG TABLET PO PRN (09:30)
[2019-12-15 12:00] VITALS: BP 107/49
[2019-12-15 16:00] VITALS: BP 130/59
[2019-12-15] MEDS: WARFARIN SODIUM 5 MG TABLET PO SCH (17:27)
--- NOTE | 2019-12-15 19:23 | NUR ---
COMPOSING MACHINE OPERATOR NOTES PATIENT IN BED RESTING, PATIENT A/OX3 . PATIENT AWAKE WATCHING TV . ON ROOM AIR, NO SOB. RESPIRATION UNLABORED. DENIES PAIN, PATIENT HAS R AC 20#, L HAND 22 BOTH FLUSHES WELL, BOTH SITES CLEAR. ON REGULAR DIET. PATIENT COOPERATIVE WITH CARE. SACRAL REDNESS WITH MEPILEX. SEE NURSING FLOWSHEET FOR SKIN ISSUES. BED LOCKED LOWEST POSITION CALL LIGHT WITH IN REACH ALL SAFETY MEASURE IMPLEMENTED PER HOSPITAL POLICY. ALL NEEDS MET, NO OTHER SIGNIFICANT CHANGE NOTED AT THIS TIME. WILL ENDORSE TO NEXT SHIFT FOR BRUNO. ACCUCHECK FOLLOW: 0830 - 157 MG/DL - REFUSED INSULIN 1316 - 93 MG/DL - NO INSULIN GIVEN 1746 - 126 MG/DL - NO INSULIN GIVEN
--- NOTE | 2019-12-15 19:50 | NUR ---
RN OPENING NOTE PT RECEIVED IN BED A/A/O X3. PT HAS UNLABORED BREATHING, ON RA. PT HAS IV ACCESS RIGHT 20G S/L FLUSHES WELL AND PATENT. SAFETY MEASURES IN PLACE BED AT LOWEST POSITION, LOCKED, SIDE RAILS UP X2, CALL LIGHT IN REACH.
[2019-12-15 20:00] VITALS: BP 125/59
--- NOTE | 2019-12-15 21:30 | NUR ---
RN NOTE COREG NON ADMIN BP 108/54 AND HR 60.
[2019-12-15] MEDS: FINASTERIDE (5 MG) 5 MG TABLET PO SCH (21:48)
[2019-12-15] MEDS: DOCUSATE SODIUM 100 MG CAPSULE PO SCH (21:48)
[2019-12-15] MEDS: ATORVASTATIN 10 MG TABLET PO SCH (21:49)
[2019-12-15] MEDS: TAMSULOSIN 0.4 MG CAP.SR.24H PO SCH (21:49)
[2019-12-15] MEDS: QUETIAPINE FUMARATE 25 MG TABLET PO SCH (21:52)
[2019-12-15] MEDS: SENNOSIDES 8.6 MG TABLET PO SCH (21:52)
[2019-12-15] MEDS: POLYETHYLENE GLYCOL 3350 17 GM POWD.PACK PO SCH (21:52)
[2019-12-15] MEDS: FOLIC ACID 1 MG TABLET PO SCH (21:52)
[2019-12-15] MEDS: ACETAMINOPHEN 325 MG TABLET PO PRN (22:15)
[2019-12-15] MEDS: ZOLPIDEM TARTRATE 10 MG TABLET PO PRN (22:15)
[2019-12-15] MEDS: INSULIN REGULAR, HUMAN 100 UNIT/ML 3 ML VIAL SQ PRN (22:29)
[2019-12-16] VITALS: BP 114/54
--- NOTE | 2019-12-16 02:07 | NUR ---
RN CLOSING NOTE REPORT GIVEN TO FEDERICO DIAS FOR BRUNO. PT REMAINED STABEL DURING MY SHIFT
[2019-12-16 04:00] VITALS: BP 123/54
[2019-12-16] MEDS: ENOXAPARIN SODIUM 80 MG/0.8 ML DISP.SYRIN SQ SCH ×2 (04:21→15:20)
--- NOTE | 2019-12-16 04:57 | NUR ---
DEBBIE/RN PATIENT C/O OF PAIN AT THE IV SITE AT RT. AC. IV WAS REMOVED AND NEW IV WAS INSERTED AT RT. WRIST.
--- NOTE | 2019-12-16 06:42 | NUR ---
DEBBIE/RN PATIENT IS SLEEPING AT THIS TIME, APPEAR COMFORTABLE, NO SIGNS OF DISTRESS NOTED, CALL LIGHT IN REACH, ALL NEEDS ATTENDED AT THIS TIME, WILL CONTINUE TO MONITOR.
--- NOTE | 2019-12-16 07:40 | NUR ---
RN OPENING NOTE PT RECEIVED IN BED A/A/O X3. PT HAS UNLABORED BREATHING, ON RA NO SOB OR DISTRESS NOTED.PT HAS IV ACCESS RIGHT 20G S/L FLUSHES WELL AND PATENT WITH NO SIGN OF INFILTRATION OR S/S INFECTION NOTED. SAFETY MEASURES ARE IMPLEMENTED BY HOSPITAL POLICY. BED IS AT LOWEST POSITION, LOCKED, SIDE RAILS UP X2, CALL LIGHT WITHIN THE REACH. WILL CONTINUE TO MONITOR.
[2019-12-16 08:00] VITALS: BP 121/60
[2019-12-16] MEDS: BLOOD SUGAR DIAGNOSTIC 1 EACH STRIP IN SCH ×4 (08:31→22:07)
[2019-12-16] MEDS: ASCORBIC ACID 500 MG TABLET PO SCH (08:32)
[2019-12-16] MEDS: CALCIUM CARB 250MG /VITAMIN D 1 UDTAB PO SCH ×2 (08:32→16:44)
[2019-12-16] MEDS: SODIUM CHLORIDE 1000 MG TABLET PO SCH ×3 (08:32→16:44)
[2019-12-16] MEDS: DOCUSATE SODIUM 250 MG CAPSULE PO SCH (08:32)
[2019-12-16] MEDS: PANTOPRAZOLE 40 MG TABLET.DR PO SCH (08:32)
[2019-12-16] MEDS: MULTIVITAMINS,THERAGRAN 1 UDTAB TABLET PO SCH (08:32)
[2019-12-16] MEDS: CARVEDILOL 12.5 MG TABLET PO SCH ×2 (08:33→21:00)
[2019-12-16] MEDS: MAGNESIUM OXIDE 400 MG TABLET PO SCH (08:33)
[2019-12-16] MEDS: AMIODARONE HCL 200 MG TABLET PO SCH (08:34)
[2019-12-16] MEDS: MEGESTROL ACETATE SUSP 400 MG/10 ML UDC PO SCH ×2 (08:34→16:44)
[2019-12-16 09:04] LABS: BASOPHILS % (AUTO) 0.4 % (0.0-2.0); EOSINOPHILS % (AUTO) 0.7 % (0.0-6.0); HEMATOCRIT 32 % (39-51); LYMPHOCYTES # (AUTO) 1.2 /CMM (0.8-4.8); MEAN CORPUSCULAR HGB CONC 34 g/dl (31.0-36.0); MEAN CORPUSCULAR VOLUME 91 fL (80-96); MONOCYTES # (AUTO) 0.8 /CMM (0.1-1.30); MONOCYTES % (AUTO) 9.5 % (2.0-12.0); NEUTROPHILS # (AUTO) 6.5 /CMM (1.8-8.9); NEUTROPHILS % (AUTO) 75.4 % (43.0-81.0); PLATELET COUNT (AUTO) 141 /CMM (150-450); RED BLOOD CELL COUNT(AUTO) 3.58 MIL/uL (4.5-6.0); WHITE BLOOD COUNT (AUTO) 8.6 K/uL (4.3-11.0)
[2019-12-16 09:10] LABS: BILIRUBIN,TOTAL 0.7 mg/dL (0.2-1.0); CALCIUM, SERUM 8.2 mg/dL (8.5-10.1); POTASSIUM 4.8 mmol/L (3.5-5.1); TOTAL PROTEIN, SERUM 5.9 g/dL (6.4-8.2)
[2019-12-16] MEDS: CLOTRIMAZOLE 1% 15 GM TUBE TP SCH ×2 (09:26→16:38)
[2019-12-16] MEDS: Z GUARD REMEDY 2 OZ OINT TP SCH (09:27)
[2019-12-16] MEDS: PROSOURCE / PROSTAT (PYXIS) 30 ML UDC PO SCH (09:42)
[2019-12-16 12:00] VITALS: BP 121/60
--- NOTE | 2019-12-16 15:30 | NUR ---
RN NOTES SAT PT ON THE CHAIR FOR 20 MIN AND THEN BACK TO THE BED. PASSIVE MOTION OF ALL EXTREMITIES WERE PERFORMED
[2019-12-16 16:00] VITALS: BP 118/55
[2019-12-16] MEDS: WARFARIN SODIUM 5 MG TABLET PO SCH (16:46)
--- NOTE | 2019-12-16 17:00 | NUR ---
RN NOTES PT BS IS 155 REFUSED INSULIN STATING HE DOESNT NEED IT
[2019-12-16] MEDS: LORAZEPAM 0.5 MG TABLET PO PRN (17:17)
--- NOTE | 2019-12-16 18:00 | NUR ---
RN NOTES PT IS HAVING PANIC ATTACK ATIVAN 1 MG IS GIVEN
--- NOTE | 2019-12-16 19:19 | NUR ---
RN CLOSING NOTES PATIENT IS REMAINS IN ROOM PT FELT PANIC ATTACK 2 L N/C APPLIED AND ATIVAN WAS GIVEN. PATIENT SATURATING 97% OF 02. VITAL SIGNS WNL. IV LINES MAINTAINED, INTACT, PATENT AND FLUSHING,AND NO SIGN OF INFILTRATION NOTED. SAFETY PRECAUTIONS ARE IMPLEMENTED BY HOSPITAL POLICY. BED IS IN LOWEST POSITION, CALL LIGHT WITHIN REACH, BREAKS ON, SIDE RAILS UPX2. ALL NEEDS ATTENDED, MEDICATIONS GIVEN SCHEDULED AND ORDERED PATIENT WAS KEPT CLEAN AND DRY. WILL ENDORSE TO [employer] MARKER FOR BRUNO
--- NOTE | 2019-12-16 19:23 | NUR ---
RN OPENING NOTE RECEIVED PT IN BED. A/O X 4. MED SURG MONITORING IN PLACE. ON NASAL CANNULA 2L OF OXYGEN. NO SIGNS OF SOB OR RESP DISTRESS AT THIS TIME. REGULAR DIET. BED BOUND. SACRAL REDNESS WITH BRUISES ON BLE. RIGHT WRIST #22 PATENT AND FLUSHED. BED IS LOCKED IN LOWEST POSITION WITH BED ALARM ON. CALL LIGHT WITHIN REACH. WILL CONTINUE TO MONITOR.
[2019-12-16 20:00] VITALS: BP 122/59
[2019-12-16] MEDS: POLYETHYLENE GLYCOL 3350 17 GM POWD.PACK PO SCH (22:02)
[2019-12-16] MEDS: DOCUSATE SODIUM 100 MG CAPSULE PO SCH (22:03)
[2019-12-16] MEDS: QUETIAPINE FUMARATE 25 MG TABLET PO SCH (22:03)
[2019-12-16] MEDS: FOLIC ACID 1 MG TABLET PO SCH (22:03)
[2019-12-16] MEDS: FINASTERIDE (5 MG) 5 MG TABLET PO SCH (22:03)
[2019-12-16] MEDS: ATORVASTATIN 10 MG TABLET PO SCH (22:03)
[2019-12-16] MEDS: TAMSULOSIN 0.4 MG CAP.SR.24H PO SCH (22:06)
[2019-12-16] MEDS: SENNOSIDES 8.6 MG TABLET PO SCH (22:06)
--- NOTE | 2019-12-16 22:15 | NUR ---
PT REFUSED INSULIN AFTER A BLOOD SUGAR CHECK OF 156. EXPLAINED RISKS AND BENEFITS X 3. PT STILL INSISTED AND REFUSED. CHARGE NURSE MADE AWARE. WILL CONTINUE TO MONITOR.
[2019-12-16] MEDS: ZOLPIDEM TARTRATE 10 MG TABLET PO PRN (22:58)
[2019-12-16] MEDS: ACETAMINOPHEN 325 MG TABLET PO PRN (22:58)
--- NOTE | 2019-12-16 23:01 | NUR ---
PT REQUESTS AMBIEN TO HELP SLEEP, PT HAS PRN MEDICATION FOR INSOMNIA. PT ALSO REQUEST TYLENOL AT THIS TIME. VERBALIZING GENERALIZED PAIN MOSTLY IN THE LEGS. RATED 3/10. PRN TYLENOL 650 MG.
[2019-12-17] MEDS: ENOXAPARIN SODIUM 80 MG/0.8 ML DISP.SYRIN SQ SCH ×2 (03:47→15:00)
[2019-12-17 04:00] VITALS: BP 109/59
--- NOTE | 2019-12-17 06:58 | NUR ---
APPLIED COLD COMPRESS TO AREA OF REDNESS/WARMTH. PT VERBALIZES DISCOMFORT ON SITE WHERE IV SITE WAS REMOVED A PREVIOUS NIGHT. WILL CONTINUE TO MONITOR. PT CAN TOLERATE DISCOMFORT FOR NOW.
[2019-12-17] MEDS: BLOOD SUGAR DIAGNOSTIC 1 EACH STRIP IN SCH ×4 (07:30→22:07)
--- NOTE | 2019-12-17 07:30 | NUR ---
RN OPENING NOTE PT RECEIVED IN BED A/A/O X4. PT ON O2 VIA NC @3L SATURATING 99%. NO SOB OR DISTRESS NOTED. PT IV RIGHT 22G S/L FLUSHES WELL AND PATENT. REFUSED 2UNITS OF INSULIN FOR 138 BLOOD GLUCOSE. SAFETY MEASURES OBSERVED. SAFETY MEASURES OBSERVED. CALL LIGHT WITHIN REACH. BED LOCKED AND IS AT LOWEST POSITION, SIDE RAILS UP X2. WILL CONTINUE TO MONITOR.
[2019-12-17 08:00] VITALS: BP 116/55
[2019-12-17] MEDS: MAGNESIUM OXIDE 400 MG TABLET PO SCH (08:29)
[2019-12-17] MEDS: MULTIVITAMINS,THERAGRAN 1 UDTAB TABLET PO SCH (08:29)
[2019-12-17] MEDS: DOCUSATE SODIUM 250 MG CAPSULE PO SCH (08:29)
[2019-12-17] MEDS: PANTOPRAZOLE 40 MG TABLET.DR PO SCH (08:29)
[2019-12-17] MEDS: AMIODARONE HCL 200 MG TABLET PO SCH (08:31)
[2019-12-17] MEDS: CALCIUM CARB 250MG /VITAMIN D 1 UDTAB PO SCH ×2 (08:32→16:50)
[2019-12-17] MEDS: ASCORBIC ACID 500 MG TABLET PO SCH (08:32)
[2019-12-17] MEDS: SODIUM CHLORIDE 1000 MG TABLET PO SCH ×3 (08:32→16:50)
[2019-12-17] MEDS: MEGESTROL ACETATE SUSP 400 MG/10 ML UDC PO SCH ×2 (08:32→16:50)
[2019-12-17] MEDS: CARVEDILOL 12.5 MG TABLET PO SCH ×2 (08:32→21:00)
--- NOTE | 2019-12-17 08:39 | NUR ---
RN CLOSING NOTE PT IS AWAKE AT THIS TIME. IS STABLE ON O2 AT 3L VIA NASAL CANNULA. MED SURG MONITORING IN PLACE. NO SIGNS OF RESPIRATORY DISTRESS OR SOB. BREATHING IS EVEN AND UNLABORED. PT STILL REQUESTS HAVING THE COLD COMPRESS FOR NOW. STILL EXPERIENCING DISCOMFORT. MEDS GIVEN, NEEDS ATTENDED. DVT PUMPS ON. BED IS LOCKED IN LOWEST POSITION WITH BED ALARM ON. CALL LIGHT WITHIN REACH. ENDORSED TO ONCOMING NURSE FOR CONTINUATION OF CARE.
[2019-12-17] MEDS: INSULIN REGULAR, HUMAN 100 UNIT/ML 3 ML VIAL SQ PRN (08:55)
[2019-12-17] MEDS: PROSOURCE / PROSTAT (PYXIS) 30 ML UDC PO SCH (09:00)
[2019-12-17] MEDS: CLOTRIMAZOLE 1% 15 GM TUBE TP SCH ×2 (09:39→16:51)
[2019-12-17] MEDS: Z GUARD REMEDY 2 OZ OINT TP SCH (09:39)
[2019-12-17 16:00] VITALS: BP 119/61
[2019-12-17] MEDS: WARFARIN SODIUM 5 MG TABLET PO SCH (16:50)
[2019-12-17] MEDS: LORAZEPAM 0.5 MG TABLET PO PRN (19:04)
--- NOTE | 2019-12-17 19:47 | NUR ---
RN CLOSING NOTE PT AWAKE RESTING IN BED. ON O2 AT 3L VIA NASAL CANNULA. MED SURG MONITORING IN PLACE. NO SOB OR RESPIRATORY DISTRESS. ALL MEDS GIVEN PER ORDER, NEEDS ATTENDED. NO PAIN AT THIS TIME. SAFETY MEASURES OBSERVED. CALL LIGHT WITHIN REACH. BED LOCKED AND IN LOWEST POSITION. WILL ENDORSE TO NURSE FOR BRUNO.
--- NOTE | 2019-12-17 20:00 | NUR ---
RN OPENING NOTE PT RECEIVED IN THE BED. PT IS A/A/O X3. ON 2 L VIA NC SATING 100%, UNLABORED BREATHING. PT HAS IV ACCESS 22 G ON L WRIST. SAFETY MEASURES IN PLACE CALL LIGHT IN REACH, BED AT LOWEST POSITION, LOCKED, SIDE RAILS UP X2.
[2019-12-17] MEDS: SENNOSIDES 8.6 MG TABLET PO SCH (21:31)
[2019-12-17] MEDS: DOCUSATE SODIUM 100 MG CAPSULE PO SCH (21:31)
[2019-12-17] MEDS: ACETAMINOPHEN 325 MG TABLET PO PRN (21:31)
[2019-12-17] MEDS: TAMSULOSIN 0.4 MG CAP.SR.24H PO SCH (21:32)
[2019-12-17] MEDS: ATORVASTATIN 10 MG TABLET PO SCH (21:32)
[2019-12-17] MEDS: FOLIC ACID 1 MG TABLET PO SCH (21:32)
[2019-12-17] MEDS: FINASTERIDE (5 MG) 5 MG TABLET PO SCH (21:32)
[2019-12-17] MEDS: QUETIAPINE FUMARATE 25 MG TABLET PO SCH (21:32)
[2019-12-17] MEDS: ZOLPIDEM TARTRATE 10 MG TABLET PO PRN (21:33)
[2019-12-17] MEDS: POLYETHYLENE GLYCOL 3350 17 GM POWD.PACK PO SCH (21:33)
[2019-12-18] MEDS: ENOXAPARIN SODIUM 80 MG/0.8 ML DISP.SYRIN SQ SCH (03:11)
[2019-12-18 04:00] VITALS: BP 141/51
--- NOTE | 2019-12-18 07:17 | NUR ---
RN CLOSING NOTE PT REMAINED STABLE DURING MY SHIFT, REPORT GIVEN TO INCOMING SHIFT FOR BRUNO.
[2019-12-18] MEDS: BLOOD SUGAR DIAGNOSTIC 1 EACH STRIP IN SCH ×2 (07:24→11:08)
[2019-12-18 07:31] LABS: CALCIUM, SERUM 8.4 mg/dL (8.5-10.1); CREATININE 0.9 mg/dL (0.6-1.3); MAGNESIUM 2.3 mg/dL (1.8-2.4)
[2019-12-18 08:00] VITALS: BP 141/51
[2019-12-18] MEDS: MULTIVITAMINS,THERAGRAN 1 UDTAB TABLET PO SCH (08:40)
[2019-12-18] MEDS: MEGESTROL ACETATE SUSP 400 MG/10 ML UDC PO SCH (08:40)
[2019-12-18] MEDS: DOCUSATE SODIUM 250 MG CAPSULE PO SCH (08:40)
[2019-12-18 08:41] VITALS: BP 118/70
[2019-12-18] MEDS: CALCIUM CARB 250MG /VITAMIN D 1 UDTAB PO SCH (08:41)
[2019-12-18] MEDS: CARVEDILOL 12.5 MG TABLET PO SCH (08:41)
[2019-12-18] MEDS: SODIUM CHLORIDE 1000 MG TABLET PO SCH ×2 (08:41→12:15)
[2019-12-18] MEDS: AMIODARONE HCL 200 MG TABLET PO SCH (08:41)
[2019-12-18] MEDS: ASCORBIC ACID 500 MG TABLET PO SCH (08:41)
[2019-12-18] MEDS: PROSOURCE / PROSTAT (PYXIS) 30 ML UDC PO SCH (08:42)
[2019-12-18] MEDS: PANTOPRAZOLE 40 MG TABLET.DR PO SCH (08:42)
[2019-12-18] MEDS: Z GUARD REMEDY 2 OZ OINT TP SCH (08:42)
[2019-12-18] MEDS: CLOTRIMAZOLE 1% 15 GM TUBE TP SCH (08:42)
[2019-12-18] MEDS ORDERED: MAGNESIUM OXIDE 400 MG TABLET PO SCH (09:00)
--- NOTE | 2019-12-18 14:58 | NUR ---
rn notes patient dc at this time to [place], refused photos and stated that he wants to leave already. EMT's to take patient to [facility]. report given to CHARIS and she did not have any other questions about discharge orders. patient has all belongings and is not missing anything. Patient has all his belongings with him.
[2019-12-18] MEDS ORDERED: ENOXAPARIN SODIUM 80 MG/0.8 ML DISP.SYRIN SQ SCH (18:00)
[2019-12-19] MEDS ORDERED: SERTRALINE HCL 25 MG TABLET PO SCH (13:00)
== END 2019-12-18 14:55 | DRG 640 ==
LOC: ER 11:32 → TELE2 13:01 → TELE1 12-11 17:43 → MEDSG1 12-11 18:54 → TELE1 12-12 22:15 → MEDSG1 12-16 07:05
PROVIDERS: ADMIT Family Medicine; ATTEND Family Medicine
DX: E87.1 Hypo-osmolality and hyponatremia (principal); N17.0 Acute kidney failure with tubular necrosis; E43 Unspecified severe protein-calorie malnutrition; G93.1 Anoxic brain damage, not elsewhere classified; I13.0 Hypertensive heart and chronic kidney disease with heart failure and stage 1 through stage 4 chronic kidney disease, or unspecified chronic kidney disease; N39.0 Urinary tract infection, site not specified; E11.51 Type 2 diabetes mellitus with diabetic peripheral angiopathy without gangrene; E11.22 Type 2 diabetes mellitus with diabetic chronic kidney disease; D63.8 Anemia in other chronic diseases classified elsewhere; I25.10 Atherosclerotic heart disease of native coronary artery without angina pectoris; N18.9 Chronic kidney disease, unspecified; I48.91 Unspecified atrial fibrillation; Z95.810 Presence of automatic (implantable) cardiac defibrillator; N40.0 Benign prostatic hyperplasia without lower urinary tract symptoms; R27.8 Other lack of coordination; R26.9 Unspecified abnormalities of gait and mobility; M19.90 Unspecified osteoarthritis, unspecified site; R13.10 Dysphagia, unspecified; Z95.1 Presence of aortocoronary bypass graft; Z87.891 Personal history of nicotine dependence; Z87.310 Personal history of (healed) osteoporosis fracture; K21.9 Gastro-esophageal reflux disease without esophagitis; K59.00 Constipation, unspecified; Z87.11 Personal history of peptic ulcer disease; Z87.01 Personal history of pneumonia (recurrent); Z86.73 Personal history of transient ischemic attack (TIA), and cerebral infarction without residual deficits; Z86.718 Personal history of other venous thrombosis and embolism; Z86.74 Personal history of sudden cardiac arrest; Z82.49 Family history of ischemic heart disease and other diseases of the circulatory system; Z86.59 Personal history of other mental and behavioral disorders; Z79.899 Other long term (current) drug therapy; Z79.01 Long term (current) use of anticoagulants; Z74.01 Bed confinement status; Z79.4 Long term (current) use of insulin; M81.0 Age-related osteoporosis without current pathological fracture; Z82.3 Family history of stroke; Z88.7 Allergy status to serum and vaccine; T50.2X5A Adverse effect of carbonic-anhydrase inhibitors, benzothiadiazides and other diuretics, initial encounter; Y92.9 Unspecified place or not applicable; M40.209 Unspecified kyphosis, site unspecified; K74.60 Unspecified cirrhosis of liver; E11.621 Type 2 diabetes mellitus with foot ulcer; L97.529 Non-pressure chronic ulcer of other part of left foot with unspecified severity; J44.9 Chronic obstructive pulmonary disease, unspecified; I70.0 Atherosclerosis of aorta; M48.10 Ankylosing hyperostosis [Forestier], site unspecified; I50.9 Heart failure, unspecified; E11.622 Type 2 diabetes mellitus with other skin ulcer; D50.9 Iron deficiency anemia, unspecified; E53.8 Deficiency of other specified B group vitamins; H40.9 Unspecified glaucoma; E11.36 Type 2 diabetes mellitus with diabetic cataract; E78.5 Hyperlipidemia, unspecified; F03.90 Unspecified dementia, unspecified severity, without behavioral disturbance, psychotic disturbance, mood disturbance, and anxiety; D69.6 Thrombocytopenia, unspecified; I25.5 Ischemic cardiomyopathy; I27.20 Pulmonary hypertension, unspecified; I35.0 Nonrheumatic aortic (valve) stenosis; M48.061 Spinal stenosis, lumbar region without neurogenic claudication; G47.33 Obstructive sleep apnea (adult) (pediatric); Z87.440 Personal history of urinary (tract) infections; E66.01 Morbid (severe) obesity due to excess calories; E87.6 Hypokalemia; E83.42 Hypomagnesemia; E86.1 Hypovolemia; F32.9 Major depressive disorder, single episode, unspecified; F41.9 Anxiety disorder, unspecified; G40.909 Epilepsy, unspecified, not intractable, without status epilepticus; G47.9 Sleep disorder, unspecified; F43.10 Post-traumatic stress disorder, unspecified; Z68.28 Body mass index [BMI] 28.0-28.9, adult
CPT/HCPCS: 36415; 71045-TC; 72052-TC; 72080-TC; 72170-TC; 80048-TC; 80053-TC; 80076-TC; 82533; 82550-TC; 82570-TC; 82962-TC; 83540-TC; 83735-TC; 83935-TC; 83970; 84100-TC; 84155-TC; 84300-TC; 84439-TC; 84443-TC; 84481; 84484-TC; 84550-TC; 85025-TC; 85610-TC; 87081-TC; 93970-TC; 97110-TC; 97530-TC; G0378; J1650; J1815; J7030; J7050; U0003-CS